=== PATIENT | female | born 1955 | race Caucasian/White ===

== ENCOUNTER → 2017-07-07 | Outpatient (CLI) | payer OTHER ==
[2017-07-07 13:20] LABS: Basophils # (A) 0.1 k/uL (0-0.2); Basophils % (A) 1 %; CHCM 31.2; Eosinophils # (A) 0.4 k/uL (0-0.7); Eosinophils % (A) 4 %; HCT 48.3 % (34.0-46.0); HGB 14.7 gm/dL (11.4-16.0); Hypochromasia Slight; Luc % (Auto) 2; Lymphocytes # (A) 1.6 k/uL (1.0-4.8); Lymphocytes % (A) 16 %; MCH 28.4 pg (25.0-35.0); MCHC 30.4 g/dL (31.0-37.0); MCV 93.2 fL (80.0-100.0); Mean Platelet Volume 7.7; Monocytes # (A) 0.5 k/uL (0-1.0); Monocytes % (A) 5 %; Neutrophils % (A) 72 %; RBC 5.19 m/uL (3.80-5.40); RDW 14.6 % (11.5-15.5); WBC 9.8 k/uL (3.8-10.6); WBC (Perox) 9.76
[2017-07-07 13:30] LABS: ALT 38 U/L (9-52); AST 23 U/L (14-36); Alkaline Phosphatase 73 U/L (38-126); Anion Gap 12 mmol/L; Blood Urea Nitrogen 13 mg/dL (7-17); Calcium 9.9 mg/dL (8.4-10.2); Carbon Dioxide 29 mmol/L (22-30); Chloride 101 mmol/L (98-107); Glucose 90 mg/dL (74-99); Non-African American GFR(MDRD) >60 (>60 ml/min/1.73 sqM); Potassium 4.9 mmol/L (3.5-5.1); Sodium 142 mmol/L (137-145); Total Bilirubin 1.1 mg/dL (0.2-1.3)
== END | disposition home or self-care (01) ==
LOC: LABWHC1 12:22
PROVIDERS: ATTEND Ophthalmology Ophthalmic Plastic and Reconstructive Surgery
DX: E05.00 Thyrotoxicosis with diffuse goiter without thyrotoxic crisis or storm (principal)
CPT/HCPCS: 36415; 80048; 82247; 84075; 84445; 84450; 84460; 84481; 85025; 86376

== ENCOUNTER → 2017-07-13 | Outpatient (CLI) | payer OTHER ==
--- NOTE | 2017-07-13 16:20 | CT ---
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 Blurry vision x couple months. CT DLP: 313.00 mGycm Automated exposure control for dose reduction was used. FINDINGS: There is uniform thickening of the inferior rectus and medial rectus muscles as well as mild thickeni ng of the superior rectus muscles and lateral rectus muscles without sparing of the myotendinous junc tions. Superior oblique musculature appears unremarkable. Chronic septation is seen within the right maxillary sinus without mucoperiosteal thickening. Inciden marlene note is made of hyperostosis frontalis and talus along the frontal calvarium. Atherosclerosis is seen of the intracranial vasculature. Exam is not optimized for evaluation of the intracranial struct ures. Superior ophthalmic veins appear unremarkable. There is no evidence of fracture or dislocation. Ocular lenses are in place and globes are symmetric. Incidental note is made of bilateral trent bullosa. IMPRESSION: FINDINGS OF BILATERAL THYROID OPHTHALMOPATHY.
== END | disposition home or self-care (01) ==
LOC: RADCTMAIN 15:45
PROVIDERS: ATTEND Ophthalmology Ophthalmic Plastic and Reconstructive Surgery
DX: E05.00 Thyrotoxicosis with diffuse goiter without thyrotoxic crisis or storm (principal)
CPT/HCPCS: 70480

== ENCOUNTER → 2017-07-13 | Outpatient (CLI) | payer OTHER ==
[2017-07-13 14:42] VITALS: BP 158/99; PULSE 134; RESP 18; TEMP 97.6
== END | disposition home or self-care (01) ==
LOC: PROCWHC3 13:47
PROVIDERS: ATTEND Ophthalmology Ophthalmic Plastic and Reconstructive Surgery
DX: Z53.9 Procedure and treatment not carried out, unspecified reason (principal); E05.00 Thyrotoxicosis with diffuse goiter without thyrotoxic crisis or storm

== ENCOUNTER → 2017-07-17 | Outpatient (CLI) | payer OTHER ==
[2017-07-17 17:15] LABS: Basophils # (A) 0.1 k/uL (0-0.2); Basophils % (A) 1 %; CHCM 31.2; Eosinophils # (A) 0.4 k/uL (0-0.7); Eosinophils % (A) 3 %; HCT 52.3 % (34.0-46.0); HDW 2.58; HGB 15.7 gm/dL (11.4-16.0); Hypochromasia Slight; Luc # (Auto) 0.17; Luc % (Auto) 2; Lymphocytes # (A) 1.6 k/uL (1.0-4.8); Lymphocytes % (A) 15 %; MCH 27.9 pg (25.0-35.0); MCV 93.2 fL (80.0-100.0); Monocytes # (A) 0.5 k/uL (0-1.0); Monocytes % (A) 4 %; Neutrophils # (A) 8.1 k/uL (1.3-7.7); Neutrophils % (A) 75 %; RBC 5.61 m/uL (3.80-5.40); RDW 14.4 % (11.5-15.5); WBC 10.8 k/uL (3.8-10.6); WBC (Perox) 10.39
[2017-07-17 17:26] LABS: ALT 47 U/L (9-52); AST 25 U/L (14-36); Alkaline Phosphatase 71 U/L (38-126); Anion Gap 10 mmol/L; Blood Urea Nitrogen 12 mg/dL (7-17); Calcium 9.7 mg/dL (8.4-10.2); Carbon Dioxide 31 mmol/L (22-30); Chloride 100 mmol/L (98-107); Glucose 111 mg/dL (74-99); Magnesium 1.6 mg/dL (1.6-2.3); Non-African American GFR(MDRD) >60 (>60 ml/min/1.73 sqM); Potassium 4.9 mmol/L (3.5-5.1); Sodium 141 mmol/L (137-145); Total Protein 6.8 g/dL (6.3-8.2)
[2017-07-17 17:48] LABS: Creatine Kinase MB 1.5 ng/mL (0.0-2.4); Troponin I <0.012 ng/mL (0.000-0.034)
== END | disposition home or self-care (01) ==
LOC: LABWHC1 17:00
PROVIDERS: ATTEND Nurse Practitioner Adult Health
DX: R06.00 Dyspnea, unspecified (principal); I48.91 Unspecified atrial fibrillation; I49.3 Ventricular premature depolarization
CPT/HCPCS: 36415; 80053; 82553; 83735; 84484; 85025; 85379

== ENCOUNTER → 2017-10-03 | Outpatient (CLI) | payer OTHER ==
--- NOTE | 2017-10-03 21:17 | US ---
EXAMINATION TYPE: US thyroid st tissue head/neck DATE OF EXAM: 10/03/2017 COMPARISON: NONE CLINICAL HISTORY: E05.90 Thyrotoxicosis without crisis or storm. Pt states Dr thinks she may have Gra ve's disease/ Pt states she had radioactive iodine for hyperthyroid 5 years ago GLAND SIZE: Right Lobe: 2.5 x 0.6 x 0.7 cm Overall Parenchyma: heterogenous Left Lobe: 3.0 x 1.2 x 1.0 cm Overall Parenchyma: heterogeneous Isthmus Thickness: 0.2 cm NODULES LEFT: # of nodules measured on left: 1 1. 1.0 X 1.0 x 1.0 cm isoechoic solid nodule at the mid pole with well-defined margins; This nodul e is equal wide and tall and shows no intranodular vascularity. Prior size: No prior Bilateral neck scanned, no evidence of lymphadenopathy. Small, heterogeneous thyroid with single nodu le on left Remnant thyroid is small in size and heterogeneous in appearance with 1.0 cm round isoechoic solid no dule left thyroid lobe noted midpole level. IMPRESSION: Small heterogeneous thyroid with 1.0 cm isoechoic round solid nodule left thyroid lobe noted.
== END | disposition home or self-care (01) ==
LOC: RADUSWWP 15:26
PROVIDERS: ATTEND Family Medicine
DX: E04.1 Nontoxic single thyroid nodule (principal)
CPT/HCPCS: 76536

== ENCOUNTER 2017-11-27 12:22 | Day surgery (SDC) | payer OTHER ==
[2017-11-27 13:21] VITALS: TEMP 97.7
[2017-11-27] MEDS ORDERED: ALPRAZolam 0.5 MG TAB PO STA (13:54)
[2017-11-27 15:13] VITALS: BP 180/102; PULSE 78; RESP 16
--- NOTE | 2017-11-27 15:24 | US ---
EXAMINATION TYPE: US FNA thyroid DATE OF EXAM: 11/27/2017 COMPARISON: Ultrasound 10/03/2017 HISTORY: Thyroid nodule, E04.1 Maximal barrier technique was utilized. Ultrasound using sterile technique. The skin overlying the no dule was localized with ultrasound and the overlying skin prepped and draped. Lidocaine used for loca l anesthesia. 5 passes with a 25-gauge needle were made into the nodule under ultrasound guidance. As pirated specimen submitted to cytology. Following the procedure hemostasis achieved. No immediate com plication IMPRESSION: Status post ultrasound-guided fine-needle aspiration of left thyroid nodule, pathology pe nding.
== END 2017-11-27 15:15 | disposition home or self-care (01) ==
LOC: RADPROMAIN 12:22
PROVIDERS: ATTEND Otolaryngology
DX: E04.1 Nontoxic single thyroid nodule (principal); E03.9 Hypothyroidism, unspecified; E05.00 Thyrotoxicosis with diffuse goiter without thyrotoxic crisis or storm; Z92.3 Personal history of irradiation
CPT/HCPCS: 10022; 76942; 88173; 88305

== ENCOUNTER 2018-04-28 14:05 | Emergency (ER) | payer OTHER ==
[2018-04-28 14:11] VITALS: RESP 18; TEMP 98
[2018-04-28] MEDS ORDERED: LIDOCAINE URO-JET JELLY 2% 5 ML KIT URETHRAL ONE (14:26)
[2018-04-28] MEDS ORDERED: SODIUM CHLORIDE 0.9% 1,000 ML IV STA (14:40)
[2018-04-28] MEDS ORDERED: SODIUM CHLORIDE 0.9% 1,000 ML IV ONE (14:41)
[2018-04-28] MEDS ORDERED: OXYMETAZOLINE 0.05% NASL SPRAY 1 SPRAY BOTTLE NASAL STA (14:47)
[2018-04-28 14:55] VITALS: PULSE 50
[2018-04-28 15:08] LABS: Basophils # (A) 0.1 k/uL (0-0.2); Basophils % (A) 0 %; Eosinophils # (A) 0.5 k/uL (0-0.7); Eosinophils % (A) 3 %; HCT 33.4 % (34.0-46.0); HGB 10.9 gm/dL (11.4-16.0); Lymphocytes # (A) 2.3 k/uL (1.0-4.8); Lymphocytes % (A) 11 %; MCHC 32.8 g/dL (31.0-37.0); MCV 88.4 fL (80.0-100.0); Mean Platelet Volume 7.2; Monocytes # (A) 1.3 k/uL (0-1.0); Monocytes % (A) 7 %; Neutrophils # (A) 15.8 k/uL (1.3-7.7); Neutrophils % (A) 78 %; Platelet Count 298 k/uL (150-450); RBC 3.77 m/uL (3.80-5.40); RDW 14.1 % (11.5-15.5); WBC 20.2 k/uL (3.8-10.6)
[2018-04-28 15:15] LABS: ALT 59 U/L (9-52); AST 28 U/L (14-36); Albumin 3.2 g/dL (3.5-5.0); Alkaline Phosphatase 53 U/L (38-126); Anion Gap 12 mmol/L; Blood Urea Nitrogen 20 mg/dL (7-17); Calcium 8.7 mg/dL (8.4-10.2); Carbon Dioxide 24 mmol/L (22-30); Chloride 102 mmol/L (98-107); Glucose 212 mg/dL (74-99); INR 1.1 (<1.2); Magnesium 1.5 mg/dL (1.6-2.3); Potassium 4.1 mmol/L (3.5-5.1); Prothrombin Time 10.5 sec (9.0-12.0); Sodium 138 mmol/L (137-145); Total Bilirubin 0.5 mg/dL (0.2-1.3); Total Protein 5.3 g/dL (6.3-8.2)
[2018-04-28 15:18] LABS: Partial Thromboplastin Time 19.3 sec (22.0-30.0)
[2018-04-28] MEDS ORDERED: cefTRIAXone 2,000 MG in SODIUM CHLORIDE 0.9% 100 ML IVPB STA (15:24)
[2018-04-28] MEDS ORDERED: cefTRIAXone IN SWFI 2,000 MG/20 ML SYRINGE IVP STA (15:25)
[2018-04-28 15:28] LABS: Creatine Kinase <20 U/L (30-135)
[2018-04-28 15:41] LABS: Creatine Kinase MB 0.4 ng/mL (0.0-2.4); Troponin I <0.012 ng/mL (0.000-0.034)
--- NOTE | 2018-04-28 16:10 | XR ---
EXAMINATION TYPE: XR chest 1V portable DATE OF EXAM: 04/28/2018 COMPARISON: NONE HISTORY: Chest pain TECHNIQUE: Single frontal view of the chest is obtained. FINDINGS: Exam limited by technique. Particular limitation lung bases. Subsegmental left perihilar c hanges are noted. Atherosclerotic change aorta. Hyperinflation suggests COPD. No pneumothorax. Arthro yolanda of the shoulders. IMPRESSION: Left perihilar subsegmental atelectasis or infiltrate correlate clinically.
[2018-04-28] MEDS ORDERED: ONDANSETRON 4 MG/2 ML VIAL IVP STA (17:41)
--- NOTE | 2018-04-28 17:47 | ED ---
ENT HPI - General Chief complaint: ENT Stated complaint: nosebleed Time Seen by Provider: 04/28/18 14:10 Source: patient, EMS Mode of arrival: EMS Limitations: no limitations - History of Present Illness Initial comments: 62 years old lady had an orbital decompression done 2 days ago at [facility] by Dr. Peck initially the nose was bleeding then the left side it stopped bleeding she also has some blood clots in her throat. Denies any headaches no neck stiffness no chest pain or shortness of breath no abdominal pain no frequency urgency dysuria or signs of any TIA or CVA - Related Data Home Medications Medication Instructions Recorded Confirmed Atorvastatin [Lipitor] 20 mg PO HS 07/13/17 04/28/18 Krill Oil 500 mg PO DAILY 07/13/17 04/28/18 Lisinopril [Zestril] 10 mg PO DAILY 07/13/17 04/28/18 Ranitidine HCl [Zantac] 150 mg PO BID 07/13/17 04/28/18 Apixaban [Eliquis] 2.5 mg PO BID 08/07/17 04/28/18 Metoprolol Tartrate [Lopressor] 100 mg PO BID 08/14/17 04/28/18 Diltiazem HCl [Cardizem] 120 mg PO DAILY 11/16/17 04/28/18 sitaGLIPtin [Januvia] 100 mg PO DAILY 11/16/17 04/28/18 Acetaminophen/Diphenhydramine 1 tab PO HS PRN 04/28/18 04/28/18 [Tylenol PM 500-25mg] Amoxic-Pot Clav 875-125Mg 1 tab PO Q12HR 04/28/18 04/28/18 [Augmentin 875-125] Aspirin 81 mg PO DAILY 04/28/18 04/28/18 Budesonide/Formoterol Fumarate 2 puff INHALATION RT-BID 04/28/18 04/28/18 [Symbicort 160-4.5 Mcg Inhaler] Calcium Carbonate 1250mg Chew 1,250 mg PO DAILY 04/28/18 04/28/18 Cholecalciferol (Vitamin D3) 2,000 unit PO DAILY 04/28/18 04/28/18 [Vitamin D3] HYDROcodone/APAP 5-325MG [[place]ford 1 tab PO Q4HR PRN 04/28/18 04/28/18 5-325] Levalbuterol Tartrate [Xopenex Hfa 1 - 2 puff INHALATION RT-Q8H PRN 04/28/1808/07 Inhaler] Levothyroxine Sodium [Synthroid] 150 mcg PO DAILY 04/28/18 04/28/18 Multivitamins, Thera [Multivitamin 1 tab PO DAILY 04/28/18 04/28/18 (formulary)] Timolol 0.5% Ophth Soln [Timoptic 1 drop BOTH EYES BID 04/28/18 04/28/18 0.5% Ophth Soln] metFORMIN HCL [Glucophage] 1,000 mg PO AC-BID 04/28/18 04/28/18 predniSONE See Taper PO DAILY 04/28/18 04/28/18 Allergies Allergy/AdvReac Type Severity Reaction Status Date / Time No Known Allergies Allergy Verified 04/28/18 14:24 Review of Systems ROS Statement: Those systems with pertinent positive or pertinent negative responses have been documented in the HPI. ROS Other: All systems not noted in ROS Statement are negative. Past Medical History Past Medical History: Atrial Fibrillation, Asthma, Diabetes Mellitus, Eye Disorder, Hyperlipidemia, Hypertension, Thyroid Disorder Additional Past Medical History / Comment(s): OVERACTIVE HYPERTHROID/TX WITH IODINE RADIATION -Graves disease History of Any Multi-Drug Resistant Organisms: None Reported Past Surgical History: Adenoidectomy, Bladder Surgery, Heart Catheterization, Tonsillectomy Additional Past Surgical History / Comment(s): BLADDER SUSPENSION, cardiac cath 08/2017, orbital surgery right side Past Anesthesia/Blood Transfusion Reactions: Postoperative Nausea & Vomiting ( PONV) Past Psychological History: No Psychological Hx Reported Smoking Status: Former smoker Past Alcohol Use History: Occasional Past Drug Use History: None Reported - Past Family History Father Family Medical History: Dementia Mother Family Medical History: Cancer Additional Family Medical History / Comment(s): BRAIN TUMOR General Exam - General Exam Comments Initial Comments: General: The patient is awake and alert, in no distress, and does not appear acutely ill. Skin: Skin is warm and dry and no rashes or lesions are noted. Eye: Pupils are equal, round and reactive to light, extra-ocular movements are intact; there is normal conjunctiva bilaterally. Ears, nose, mouth and throat: Noticed any right side was bleeding than the left side of thetop bleeding and she had a blood in the oropharynx Neck: The neck is supple, there is no tenderness or JVD. Cardiovascular: There is a regular rate and rhythm. No murmur, rub or gallop is appreciated. Respiratory: To auscultation bilateral, no wheezing no rhonchi no distress respiratory desai noticed Gastrointestinal: Soft, non-distended, non-tender abdomen without masses or organomegaly noted. There is no rebound or guarding present. Bowel sounds are unremarkable. Back: There is no tenderness to palpation in the midline. There is no obvious deformity. Musculoskeletal: Normal ROM, no tenderness, There is no pedal edema. There is no calf tenderness or swelling. No cords were appreciated. Neurological: CN II-XII intact, Cranial nerves III through XII are intact. There are no obvious motor or sensory deficits. Coordination appears grossly intact. Speech is normal. Psychiatric: Cooperative, appropriate mood & affect, normal judgment. Limitations: no limitations Course Vital Signs 04/28/18 04/28/18 04/28/18 14:07 14:54 15:19 Temperature 98 F Pulse Rate 51 L 50 L 50 L Respiratory 18 18 Rate Blood Pressure 156/69 132/65 O2 Sat by Pulse 95 95 95 Oximetry 04/28/18 16:33 Temperature Pulse Rate 50 L Respiratory 18 Rate Blood Pressure 156/57 O2 Sat by Pulse 94 L Oximetry Her hemoglobin is 10.9 white count is 20.2 she was given Rocephin 2 g since packing did not work she would need to go to the or, call Dr. Eugene burroughs at [facility] he advised that we transfer to [facility] Her stay in his right nostril packed with Merocel then the left side was packed with Merocel but are later that didn't control the epistaxis patient could not transfer her doctor on heike at [facility] for next Medical Decision Making - Lab Data Result diagrams: 04/28/18 14:47 04/28/18 14:47 Lab Results 04/28/18 04/28/18 04/28/18 Range/Units 14:47 14:47 14:47 WBC 20.2 H (3.8-10.6) k/uL RBC 3.77 L (3.80-5.40) m/uL Hgb 10.9 L (11.4-16.0) gm/dL Hct 33.4 L (34.0-46.0) % MCV 88.4 (80.0-100.0) fL MCH 29.0 (25.0-35.0) pg MCHC 32.8 (31.0-37.0) g/dL RDW 14.1 (11.5-15.5) % Plt Count 298 (150-450) k/uL Neutrophils % 78 % Lymphocytes % 11 % Monocytes % 7 % Eosinophils % 3 % Basophils % 0 % Neutrophils # 15.8 H (1.3-7.7) k/uL Lymphocytes # 2.3 (1.0-4.8) k/uL Monocytes # 1.3 H (0-1.0) k/uL Eosinophils # 0.5 (0-0.7) k/uL Basophils # 0.1 (0-0.2) k/uL PT (9.0-12.0) sec INR (<1.2) APTT (22.0-30.0) sec Sodium 138 (137-145) mmol/L Potassium 4.1 (3.5-5.1) mmol/L Chloride 102 (98-107) mmol/L Carbon Dioxide 24 (22-30) mmol/L Anion Gap 12 mmol/L BUN 20 H (7-17) mg/dL Creatinine 0.74 (0.52-1.04) mg/dL Est GFR (CKD-EPI)AfAm >90 (>60 ml/min/1.73 sqM) Est GFR (CKD-EPI)NonAf 87 (>60 ml/min/1.73 sqM) Glucose 212 H (74-99) mg/dL Calcium 8.7 (8.4-10.2) mg/dL Magnesium 1.5 L (1.6-2.3) mg/dL Total Bilirubin 0.5 (0.2-1.3) mg/dL AST 28 (14-36) U/L ALT 59 H (9-52) U/L Alkaline Phosphatase 53 (38-126) U/L Total Creatine Kinase <20 L (30-135) U/L CK-MB (CK-2) 0.4 (0.0-2.4) ng/mL CK-MB (CK-2) Rel Index Troponin I <0.012 (0.000-0.034) ng/mL Total Protein 5.3 L (6.3-8.2) g/dL Albumin 3.2 L (3.5-5.0) g/dL Blood Type Blood Type Recheck Antibody Screen Spec Expiration Date 04/28/18 04/28/18 Range/Units 14:47 14:47 WBC (3.8-10.6) k/uL RBC (3.80-5.40) m/uL Hgb (11.4-16.0) gm/dL Hct (34.0-46.0) % MCV (80.0-100.0) fL MCH (25.0-35.0) pg MCHC (31.0-37.0) g/dL RDW (11.5-15.5) % Plt Count (150-450) k/uL Neutrophils % % Lymphocytes % % Monocytes % % Eosinophils % % Basophils % % Neutrophils # (1.3-7.7) k/uL Lymphocytes # (1.0-4.8) k/uL Monocytes # (0-1.0) k/uL Eosinophils # (0-0.7) k/uL Basophils # (0-0.2) k/uL PT 10.5 (9.0-12.0) sec INR 1.1 (<1.2) APTT 19.3 L (22.0-30.0) sec Sodium (137-145) mmol/L Potassium (3.5-5.1) mmol/L Chloride (98-107) mmol/L Carbon Dioxide (22-30) mmol/L Anion Gap mmol/L BUN (7-17) mg/dL Creatinine (0.52-1.04) mg/dL Est GFR (CKD-EPI)AfAm (>60 ml/min/1.73 sqM) Est GFR (CKD-EPI)NonAf (>60 ml/min/1.73 sqM) Glucose (74-99) mg/dL Calcium (8.4-10.2) mg/dL Magnesium (1.6-2.3) mg/dL Total Bilirubin (0.2-1.3) mg/dL AST (14-36) U/L ALT (9-52) U/L Alkaline Phosphatase (38-126) U/L Total Creatine Kinase (30-135) U/L CK-MB (CK-2) (0.0-2.4) ng/mL CK-MB (CK-2) Rel Index Troponin I (0.000-0.034) ng/mL Total Protein (6.3-8.2) g/dL Albumin (3.5-5.0) g/dL Blood Type O Negative Blood Type Recheck No Antibody Screen NEGATIVE Spec Expiration Date 05/01/2018 - 2347 Disposition Clinical Impression: Epistaxis Disposition: OTHER INSTITUTION NOT DEFINED Condition: Fair Referrals: Chet Apodaca MD [Primary Care Provider] - 1-2 days - Out of Hospital Transfer - Req. Specs Out of Hospital Transfer - Requested Specifics: Other Emergency Center ( [facility] accepting physician Dr. Qureshi)
[2018-04-28 18:35] VITALS: BP 146/62
--- NOTE | 2018-05-01 02:10 | CDI ---
Documentation Clarification OP Dear Saskia Steve Please do addendum to ED report for missing procedure done related to lidocaine HCL administration. Thank you, Ghazal Neal Internet Ecommerce Specialist If you have any questions, please contact Station Engineer Main Line at [phone] [facility]
== END 2018-04-28 18:25 | disposition other institution (70) ==
LOC: EC 14:05
DX: R04.0 Epistaxis (principal); E05.00 Thyrotoxicosis with diffuse goiter without thyrotoxic crisis or storm; I48.91 Unspecified atrial fibrillation; J45.909 Unspecified asthma, uncomplicated; E11.9 Type 2 diabetes mellitus without complications; E78.5 Hyperlipidemia, unspecified; E07.9 Disorder of thyroid, unspecified; I10 Essential (primary) hypertension; Z87.891 Personal history of nicotine dependence; Z95.818 Presence of other cardiac implants and grafts; Z79.01 Long term (current) use of anticoagulants; Z79.84 Long term (current) use of oral hypoglycemic drugs; Z79.82 Long term (current) use of aspirin; Z79.51 Long term (current) use of inhaled steroids; Z79.52 Long term (current) use of systemic steroids; Z79.899 Other long term (current) drug therapy; Z98.890 Other specified postprocedural states
CPT/HCPCS: 99285; 30901; 96374; 96375; 96361; 36415; 93005; 86900; 86901; 80053; 82550; 82553; 83735; 84484; 85025; 85610; 85730; 86850; 71045; J2405; J0696

== ENCOUNTER → 2018-07-30 | Outpatient (CLI) | payer OTHER ==
--- NOTE | 2018-07-30 12:57 | US ---
EXAMINATION TYPE: US thyroid st tissue head/neck DATE OF EXAM: 07/30/2018 COMPARISON: 10/03/2017 CLINICAL HISTORY: E04.1 Nontoxic single thyroid nodule. Hx of left thyroid nodule. On thyroid meds. Hx of FNA- neg per patient. GLAND SIZE: Right Lobe: 1.9 x 0.4 x 0.8 cm Overall Parenchyma: heterogenous Left Lobe: 1.5 x 1.2 x 0.8 cm Overall Parenchyma: heterogeneous Isthmus Thickness: 0.2 cm NODULES RIGHT: # of nodules measured on right: 0 LEFT: # of nodules measured on left: 1 1. 1.0 X 0.9 x 0.7 cm isoechoic nodule at the mid pole with well-defined margins. This nodule is t aller than wide and shows intranodular vascularity. Prior size: 1.0 x 1.0 x 1.0 cm ISTHMUS: # of nodules measured in the isthmus: 0 Bilateral neck scanned, no evidence of lymphadenopathy. IMPRESSION: Stable thyroid nodularity appearance.
== END | disposition home or self-care (01) ==
LOC: RADUSWWP 12:15
PROVIDERS: ATTEND Otolaryngology
DX: E04.1 Nontoxic single thyroid nodule (principal)
CPT/HCPCS: 76536

== ENCOUNTER → 2018-08-22 | Outpatient (CLI) | payer OTHER ==
--- NOTE | 2018-08-22 15:32 | CT ---
EXAMINATION TYPE: CT sinus wo con DATE OF EXAM: 08/22/2018 COMPARISON: 07/13/2017 facial bone study. HISTORY: Dizziness after orbital decompression CT DLP: 304.00 mGycm CONTRAST: 0 mL of Isovue 300 The paranasal sinuses are examined in the axial plane at 2 mm thick sections. Reconstructed images i n the coronal plane were obtained. There is dental amalgam scatter artifact There is interval development of mucosal thickening throughout multiple postsurgical sinuses. There i s mucosal thickening nearly filling the right maxillary sinus. Mucosal thickening within left maxilla ry sinus. Bilateral uncinectomies been performed. Ethmoidectomies been performed. There is mucosal t hickening within residual ethmoid air cells. Mucosal thickening within the right and posterior left s phenoid sinuses. Frontal sinuses. Minimal mucosal thickening. The septum is evaluated. There is septal spur to the right. A left trent bullosa is present. Hyperostosis frontalis internus is present, normal variant. IMPRESSIONS: 1. Scattered mucosal thickening and postsurgical sinus study.
== END | disposition home or self-care (01) ==
LOC: RADCTMAIN 14:51
PROVIDERS: ATTEND Otolaryngology
DX: J34.89 Other specified disorders of nose and nasal sinuses (principal); J32.9 Chronic sinusitis, unspecified; Z98.890 Other specified postprocedural states
CPT/HCPCS: 70486

== ENCOUNTER → 2018-09-05 | Outpatient (CLI) | payer OTHER ==
--- NOTE | 2018-09-06 05:44 | MR ---
EXAMINATION TYPE: MR brain and iac wo/w con DATE OF EXAM: 09/05/2018 COMPARISON: CT sinuses August 22, 2018 HISTORY: Tinnitus / Dizziness as well as chronic sinusitis and acoustic nerve nerve disorder all per order and patient. TECHNIQUE: Multiplanar, multisequence images of the brain and brainstem is performed without and with IV contras t, utilizing 7.5 mL intravenous Gadavist . FINDINGS: Diffusion weighted images demonstrate no evidence of a recent infarct or other diffusion ab normality. There is no worrisome extra-axial fluid collection. The ventricular system and cisternal spaces are normal in size and appearance. The brain volume is age appropriate. There are scattered focal and confluent areas of T2 hyperintensity seen throughout the superficial, deep, and the periven tricular white matter. For reference a lesion measuring 10 mm long axis axial image 19 posterior righ t frontal lobe at level of pino radiata is noted. Midline structures demonstrate normal morphology. The craniocervical junction appears within normal limits. Post contrast images demonstrate no abnormal enhancement. The dural venous sinuses appear pa tent. There is redemonstration of small mucous retention cyst in the posterior inferior left maxillar y sinus. There is moderate to severe lobulated mucosal thickening filling the majority of the right m axillary sinus. Mild mucosal thickening anterior right sphenoid sinus is redemonstrated. Dependent fl uid left sphenoid sinus axial image 9 is redemonstrated. There are old fracture deformities of the me dial wall bilateral orbits near axial image 12 redemonstrated. Globes are intact bilaterally. Mastoid air cells show no suspicious opacification. The vestibulocochlear complexes are symmetric and felt within normal limits. No suspicious enhancing cerebellopontine angle mass is identified bilater ally. IMPRESSION: 1. No suspicious enhancing cerebellopontine angle mass. 2. Acute on chronic paranasal sinus disease as detailed above. 3. [id number] nonspecific white matter changes, no suspicious enhancement is seen.
== END | disposition home or self-care (01) ==
LOC: RADMRIMAIN 16:15
PROVIDERS: ATTEND Otolaryngology
DX: R90.89 Other abnormal findings on diagnostic imaging of central nervous system (principal); H93.3X9 Disorders of unspecified acoustic nerve; H93.19 Tinnitus, unspecified ear
CPT/HCPCS: 82565; 70553; 36415; A9585

== ENCOUNTER 2018-10-18 07:40 | Day surgery (SDC) | payer OTHER ==
[2018-10-15 14:55] VITALS: BMI 29.2
[~2018-10-18 07:40] MED LIST: DEXAMETHASONE SOD PHOSPHATE 10 MG/ML 1 ML VIAL IV ONE; DEXAMETHASONE SOD PHOSPHATE 4 MG/ML 1 ML VIAL IV ONE; FAMOTIDINE 20 MG/2 ML VIAL IV ONE; HYDROmorphone 1 MG/ML 1 ML SYRINGE IVP PRN; LACTATED RINGERS 1,000 ML IV SCH; LIDOCAINE 1% 20 ML VIAL (10MG/ML) FOR IV START INTRADERMA PRN; ONDANSETRON 4 MG/2 ML VIAL IVP ONE; SCOPOLAMINE 1.5MG/72HR PATCH TRANSDERM ONE; ceFAZolin 1,000 MG in DEXTROSE/WATER 1 50ML.BAG IV ONE
[2018-10-18 08:12] VITALS: RESP 16
[2018-10-18] MEDS: OXYMETAZOLINE 0.05% NASL SPRAY 1 SPRAY BOTTLE NASAL ONE ×5 (08:17→08:42)
[2018-10-18 08:19] LABS: Glucose,Whole Blood 133 mg/dL (75-99)
[2018-10-18] MEDS ORDERED: MIDAZOLAM 2 MG/2 ML VIAL IV ONE (08:37)
[2018-10-18] MEDS ORDERED: SUCCINYLCHOLINE CHLORIDE 100 MG/5 ML SYR IV ONE (09:00)
[2018-10-18] MEDS ORDERED: fentaNYL (PF) 50 MCG/ML 2 ML AMP ONE (09:00)
[2018-10-18] MEDS ORDERED: DEXAMETHASONE SOD PHOS (MDV) 100 MG/10 ML VIAL ONE (09:00)
[2018-10-18] MEDS ORDERED: ePHEDrine SULFATE/0.9% NACL/PF 50 MG/5 ML SYRINGE IV ONE (09:00)
[2018-10-18] MEDS ORDERED: MIDAZOLAM 2 MG/2 ML VIAL ONE (09:00)
[2018-10-18] MEDS ORDERED: PROPOFOL 10 MG/ML 20 ML VIAL IV ONE (09:00)
[2018-10-18] MEDS ORDERED: LIDOCAINE 1% INJ 10MG/ML (20 ML MDV) ONE (09:00)
[2018-10-18] MEDS ORDERED: LIDOCAINE 1%-EPI 1:100,000 30 ML VIAL SUBMUCOSAL ONE (09:10)
[2018-10-18] MEDS ORDERED: BUPIVACAINE-EPI 0.5%-1:200,000 10 ML VIAL SQ ONE (09:10)
[2018-10-18] MEDS ORDERED: ceFAZolin 1,000 MG/50 ML BAG (PMX) IVPB ONE (09:10)
[2018-10-18] MEDS ORDERED: EPINEPHrine 10 ML SYRINGE (0.1 MG/ML) MISCELLANE ONE (09:10)
[2018-10-18 10:16] VITALS: TEMP 97.3
--- NOTE | 2018-10-18 10:25 | P.OP ---
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 Placement of drug- eluting stent bilaterally, propel and contour Anesthesia: MARK Surgeon: Elgin Gallardo Estimated Blood Loss (ml): 5 Pathology: none sent (sinonasal) Condition: stable Disposition: PACU Indications for Procedure: This patient presented to the office with chronic sinusitis. She had an orbital decompression for Graves' disease and CAT scan demonstrates chronic maxillary and sphenoid sinusitis with polyposis. She's failed medical therapy with multiple antibiotics reviewed her problems and then persistent for well over a year. She has diabetes and unable to do for steroids. She recently completed Levaquin and Flonase and Brionna with no long-term improvement. Patient is requesting surgery. All risks, benefits, and alternative therapies were discussed. All questions were answered and a consent was obtained. Operative Findings: Patient had massive sinonasal disease of the maxillary and sphenoid sinuses with large amount of polyposis noted. Description of Procedure: This patient was taken to the operative room and placed in the supine position. A general inhalation anesthetic was administered to the patient by the department of anesthesia and monitored throughout the entire case by the department of anesthesia. The nose was topically decongested and then the lateral nasal wall was injected with lidocaine 1% with epinephrine 1 100,000. A sphenopalatine nerve block was also performed. After appropriate amount of time the nose was entered with a 0 and 30 Mcclain emani telescope and we utilized endoscopic visualization throughout the entire procedure with confirmation of anatomic guidance. Firstly we went underneath the inferior turbinates and did a bilateral maxillary antrostomy underneath the inferior turbinate. A large amount of polyp material was removed from the maxillary sinus through the nasal antral windows. We then went above the inferior turbinate and with a microdebrider opening up the maxillary sinuses and removed diseased tissue bilaterally. After the maxillary sinuses were open both above and below the inferior turbinate propel and contour was placed. This was done bilaterally. Again a large amount of polyp disease was removed from both maxillary sinuses. We then identified the sphenoid sinus and open the sphenoid sinuses with a microdebrider. We entered the sphenoid sinus and we remove diseased tissue from the sphenoid sinus bilaterally. To summarize the maxillary sinuses were open above and below the inferior turbinate and diseased tissue and polyps were removed. We then opened the maxillary sinuses and did the same with a wide opening and removal of diseased tissue and polyps. Again propel and contour was placed bilaterally and the patient tolerated this well. Follow-up will be in the office in 1 week and the patient is to contact me if any problems should arise in the interim.
[2018-10-18 10:49] LABS: Glucose,Whole Blood 157 mg/dL (75-99)
[2018-10-18 11:48] VITALS: BP 144/82; PULSE 66
== END 2018-10-18 12:23 | disposition home or self-care (01) ==
LOC: OR 07:40
PROVIDERS: ATTEND Otolaryngology
DX: J32.0 Chronic maxillary sinusitis (principal); J32.3 Chronic sphenoidal sinusitis; J33.8 Other polyp of sinus; J45.909 Unspecified asthma, uncomplicated; I10 Essential (primary) hypertension; E11.9 Type 2 diabetes mellitus without complications; I48.0 Paroxysmal atrial fibrillation; I42.9 Cardiomyopathy, unspecified; E78.2 Mixed hyperlipidemia; E05.00 Thyrotoxicosis with diffuse goiter without thyrotoxic crisis or storm; K21.9 Gastro-esophageal reflux disease without esophagitis; Z79.01 Long term (current) use of anticoagulants; Z79.82 Long term (current) use of aspirin; Z79.84 Long term (current) use of oral hypoglycemic drugs; Z79.890 Hormone replacement therapy; Z79.899 Other long term (current) drug therapy; Z79.51 Long term (current) use of inhaled steroids; Z87.891 Personal history of nicotine dependence
CPT/HCPCS: 88305; 31267; 31288; C2625 ×2; J2250; J1100 ×2; J2405; J2001; J0171; J3010; J0690; J0330; J2704

== ENCOUNTER → 2019-04-18 | Outpatient (CLI) | payer OTHER ==
[2019-04-18 16:02] LABS: Anisocytosis Slight; Basophils # (A) 0.1 k/uL (0-0.2); Basophils % (A) 1 %; Eosinophils # (A) 0.3 k/uL (0-0.7); Eosinophils % (A) 3 %; HCT 31.3 % (34.0-46.0); HGB 8.2 gm/dL (11.4-16.0); Hypochromasia Marked; Lymphocytes # (A) 1.4 k/uL (1.0-4.8); Lymphocytes % (A) 12 %; MCH 17.7 pg (25.0-35.0); MCHC 26.1 g/dL (31.0-37.0); MCV 67.6 fL (80.0-100.0); Mean Platelet Volume 8.2; Microcytosis Marked; Monocytes # (A) 0.7 k/uL (0-1.0); Monocytes % (A) 6 %; Neutrophils # (A) 8.6 k/uL (1.3-7.7); Neutrophils % (A) 77 %; Platelet Count 326 k/uL (150-450); Poikilocytosis Slight; RBC 4.63 m/uL (3.80-5.40); RDW 18.6 % (11.5-15.5); WBC 11.3 k/uL (3.8-10.6)
[2019-04-18 16:11] LABS: ALT 17 U/L (9-52); AST 19 U/L (14-36); Albumin 4.3 g/dL (3.5-5.0); Albumin/Globulin Ratio 1.7; Alkaline Phosphatase 58 U/L (38-126); Anion Gap 9 mmol/L; Blood Urea Nitrogen 16 mg/dL (7-17); Calcium 9.6 mg/dL (8.4-10.2); Carbon Dioxide 31 mmol/L (22-30); Chloride 100 mmol/L (98-107); Globulin 2.6 g/dL; Glucose 128 mg/dL (74-99); Sodium 140 mmol/L (137-145); Total Bilirubin 0.7 mg/dL (0.2-1.3); Total Protein 6.9 g/dL (6.3-8.2)
[2019-04-18 23:19] LABS: Iron Saturation 2.38 (12.00-45.00)
== END ==
LOC: LABWHC1 15:33
PROVIDERS: ATTEND Nurse Practitioner Adult Health
DX: I48.91 Unspecified atrial fibrillation (principal); D64.9 Anemia, unspecified
CPT/HCPCS: 36415; 80053; 83540; 83550; 83880; 85025

== ENCOUNTER → 2019-05-01 | Outpatient (CLI) | payer OTHER ==
--- NOTE | 2019-05-01 12:36 | US ---
EXAMINATION TYPE: US transvaginal DATE OF EXAM: 05/01/2019 COMPARISON: NONE CLINICAL HISTORY: D64.9 anemia. TECHNIQUE: Transvaginal (TV). Transabdominal sonographic images of the pelvis were acquired. Trans vaginal sonographic images were medically necessary to better assess the following anatomy: Date of LMP: Post menopausal. EXAM MEASUREMENTS: Uterus: 5.8 x 3.3 x 3.0 cm Endometrial Stripe: Not well seen cm Right Ovary: Not identified cm Left Ovary: Not identified cm 1. Uterus: Retroverted Partially Obscured by overlying bowel gas 2. Endometrium: Fluid collection noted = 0.8 x 1.3 x 0.4 cm 3. Right Ovary: Obscured by overlying bowel gas 4. Left Ovary: Obscured by overlying bowel gas Spectral, color and waveform doppler imaging shows good arterial and venous flow within the ovaries ; there is no evidence for ovarian torsion. 5. Bilateral Adnexa: wnl 6. Posterior cul-de-sac: wnl Sub optimal exam due to position of uterus, overlying bowel gas, and patient difficulty with exam. IMPRESSION: 1. Small endometrial fluid collection can be seen in endometrial atrophy. Correlate with postmenopaus al bleeding. Endometrium and uterus are overall poorly defined. 2. Nonvisualization of the ovaries.
== END | disposition home or self-care (01) ==
LOC: RADUSWWP 10:25
PROVIDERS: ATTEND Family Medicine
DX: N85.8 Other specified noninflammatory disorders of uterus (principal); D64.9 Anemia, unspecified
CPT/HCPCS: 76830

== ENCOUNTER 2019-05-06 08:28 | Day surgery (SDC) | payer OTHER ==
[2019-05-01 11:17] VITALS: BMI 30.5
[~2019-05-06 08:28] MED LIST changes: -DEXAMETHASONE SOD PHOSPHATE 10 MG/ML 1 ML VIAL IV ONE; -DEXAMETHASONE SOD PHOSPHATE 4 MG/ML 1 ML VIAL IV ONE; -FAMOTIDINE 20 MG/2 ML VIAL IV ONE; -HYDROmorphone 1 MG/ML 1 ML SYRINGE IVP PRN; -LIDOCAINE 1% 20 ML VIAL (10MG/ML) FOR IV START INTRADERMA PRN; -ONDANSETRON 4 MG/2 ML VIAL IVP ONE; -SCOPOLAMINE 1.5MG/72HR PATCH TRANSDERM ONE; -ceFAZolin 1,000 MG in DEXTROSE/WATER 1 50ML.BAG IV ONE
[2019-05-06 09:10] VITALS: TEMP 97.2
[2019-05-06] MEDS ORDERED: LIDOCAINE 1% 20 ML VIAL (10MG/ML) FOR IV START INTRADERMA ONE (09:14)
[2019-05-06] MEDS ORDERED: LIDOCAINE 1% INJ 10MG/ML (20 ML MDV) ONE (09:42)
[2019-05-06] MEDS ORDERED: PROPOFOL 10 MG/ML 20 ML VIAL IV ONE (09:42)
[2019-05-06 10:43] VITALS: BP 126/79; PULSE 100; RESP 18
--- NOTE | 2019-05-06 11:55 | P.PCN ---
Date of Procedure: 05/06/19 Procedure(s) Performed: Procedure: Esophagogastroduodenoscopy and biopsy. Total colonoscopy. Preoperative diagnosis: Anemia. Postoperative diagnosis: 1. Small sliding hiatal hernia with no obvious esophagitis or complicated reflux disease. 2. Mild antral gastritis. 3. Multiple biopsies obtained from the duodenum, antrum and esophagus. 4. Sigmoid diverticulosis with no evidence of acute diverticulitis, strictures, polyps or cancer. Preparation and sedation: Was provided by anesthesia. Brief clinical history: The patient is a 63-year-old female who is scheduled for this evaluation because of anemia. The purposes to rule out lower GI sources of bleeding. Procedure: With the patient on her left lateral decubitus position and after informed consent and adequate sedation, I passed the Olympus-GIF H190 video upper endoscope through the cricopharyngeus down the esophagus. GE junction was around 36 cm from the incisors and there was a small sliding hiatal hernia but no obvious esophagitis or complicated reflux disease. The endoscope was then advanced into the stomach which was insufflated with air and inspected in detail including the retroflex view in the cardia. There was some mottling and erythema in the antrum but no ulcers or erosions. Pyloric channel, duodenal bulb, post bulbar area and descending duodenum appeared within normal limits. Because of her symptoms, obtained biopsies from the duodenum, antrum and esophagus then the endoscope was withdrawn and I proceeded to perform the colonoscopy. Perianal area did not show any fissures or fistulas. There were no masses felt on digital rectal examination. The Olympus CFH 190L was then inserted in the rectum in the usual fashion and advanced to the cecum. Few diverticular orifices were seen scattered in the sigmoid with no evidence of acute diverticulitis or strictures. The mucosa appeared healthy. No polyps or tumors were seen. I retroflexed endoscope in the rectum before the endoscope was withdrawn. The patient tolerated the procedure well. Plan: The patient was reassured. Will await biopsy results. Further plans based on her course and biopsy results. She will follow-up with you as planned.
== END 2019-05-06 11:18 | disposition home or self-care (01) ==
LOC: ORWHC2ENDO 08:28
DX: D64.9 Anemia, unspecified (principal); K44.9 Diaphragmatic hernia without obstruction or gangrene; K29.50 Unspecified chronic gastritis without bleeding; K57.30 Diverticulosis of large intestine without perforation or abscess without bleeding; K20.9 Esophagitis, unspecified; I48.91 Unspecified atrial fibrillation; E11.9 Type 2 diabetes mellitus without complications; I10 Essential (primary) hypertension; E78.5 Hyperlipidemia, unspecified; J44.9 Chronic obstructive pulmonary disease, unspecified; Z79.82 Long term (current) use of aspirin; Z79.890 Hormone replacement therapy; Z79.899 Other long term (current) drug therapy; Z79.84 Long term (current) use of oral hypoglycemic drugs
CPT/HCPCS: 88305; 45378; 43239; J2001; J2704

== ENCOUNTER → 2019-05-24 | Outpatient (CLI) | payer OTHER ==
--- NOTE | 2019-05-24 16:23 | CT ---
EXAMINATION TYPE: CT abdomen pelvis wo con DATE OF EXAM: 05/24/2019 COMPARISON: None HISTORY: Anemia. CT DLP: 826 mGycm Examination of the solid and hollow viscera is limited given the lack of contrast. FINDINGS: LUNG BASES: No evidence for nodule. No evidence for infiltrate. Sliding-type hiatal hernia. LIVER/GB: The gallbladder is unremarkable. No space-occupying hepatic lesion. PANCREAS: No pancreatic mass identified. No inflammatory process seen. SPLEEN: No evidence for splenomegaly. No intrasplenic lesions seen. ADRENALS: No adrenal nodules identified. No evidence for thickening. KIDNEYS: No evidence for renal mass. No nephrolithiasis. No hydronephrosis. BOWEL: Appendix has a normal appearance. No evidence of bowel obstruction. No inflammatory process. R ight lower quadrant soft tissue nodule measuring 1.1 cm of uncertain etiology within the right lower quadrant mesentery with mild surrounding strandy attenuation. Lymph nodes: No evidence for adenopathy greater than 1 cm. Abdominal aorta: Atheromatous changes seen. No evidence for aneurysm. Genital organs: No significant abnormality. Other: No significant abnormality. IMPRESSION: 1. No significant abnormality to account for the patient's symptoms of hematuria. 2. Small sliding-type hiatal hernia. 3. Normal appendix.
--- NOTE | 2019-05-24 16:28 | CT ---
EXAMINATION TYPE: CT sinus wo con DATE OF EXAM: 05/24/2019 COMPARISON: 08/22/2018 HISTORY: Chronic sinusitis. CT DLP: [address] of the paranasal sinuses was performed in the axial and coronal planes. Bone and soft tissue settings are submitted. Bilateral medial maxillary antrectomy. Moderate mucosal thickening right maxillary sinus. Left maxill simeon sinus is well aerated. Changes of partial ethmoidectomy with scattered mucosal thickening of the remaining ethmoid air cells. Frontal sinuses are hypoaerated. There is mild mucosal thickening of the sphenoid sinus. The nasal septum is midline. No bony destructive changes are seen within the field of view. IMPRESSION: Changes of chronic sinusitis. Postop changes. Overall stable examination.
== END | disposition home or self-care (01) ==
LOC: RADCTMAIN 15:43
PROVIDERS: ATTEND Otolaryngology
DX: K44.9 Diaphragmatic hernia without obstruction or gangrene (principal); J32.9 Chronic sinusitis, unspecified; Z98.890 Other specified postprocedural states
CPT/HCPCS: 70486; 74176

== ENCOUNTER → 2019-05-24 | Outpatient (CLI) | payer OTHER | END | disposition home or self-care (01) | LOC: RADCTMAIN 15:41 | PROVIDERS: ATTEND Nurse Practitioner Adult Health | DX: Z53.9 Procedure and treatment not carried out, unspecified reason (principal) ==

== ENCOUNTER → 2019-08-07 | Outpatient (CLI) | payer OTHER ==
--- NOTE | 2019-08-07 16:01 | US ---
EXAMINATION TYPE: US thyroid st tissue head/neck DATE OF EXAM: 08/07/2019 COMPARISON: NONE CLINICAL HISTORY: E04.1 Thyroid Nodule. follow up exam, had radiation pill years ago GLAND SIZE: Right Lobe: 1.6 x 0.5 x 0.6 cm Overall Parenchyma: homogenous Left Lobe: 1.9 x 0.9 x 1.1 cm Overall Parenchyma: heterogeneous Isthmus Thickness: 0.2 cm NODULES RIGHT: # of nodules measured on right: 0 LEFT: # of nodules measured on left: 1 1. 1.1 X 0.7 x 0.8 cm hypoechoic solid nodule at the mid pole with well-defined margins; . This no dule is wider than tall and shows no intranodular vascularity. Prior size: 1.0 x 0.9 x 0.7 cm ISTHMUS: # of nodules measured in the isthmus: 0 Bilateral neck scanned, no evidence of lymphadenopathy. IMPRESSION: 1. 1 cm left lobe thyroid nodule. This appears similar in size from the comparison
== END | disposition home or self-care (01) ==
LOC: RADUSWWP 14:18
PROVIDERS: ATTEND Otolaryngology
DX: E04.1 Nontoxic single thyroid nodule (principal)
CPT/HCPCS: 76536

== ENCOUNTER → 2020-08-10 | Outpatient (CLI) | payer MEDICARE, OTHER ==
--- NOTE | 2020-08-10 18:09 | US ---
EXAMINATION TYPE: US thyroid st tissue head/neck DATE OF EXAM: 08/10/2020 COMPARISON: 08/07/2019 CLINICAL HISTORY: 64-year-old female E04.1 Thyroid nodule. Left thyroid nodule TECHNIQUE: Multiple sonographic images of the thyroid gland are obtained. FINDINGS: GLAND SIZE: Right Lobe: 2.5 x 1.0 x 1.0 cm Overall Parenchyma: heterogenous Left Lobe: 2.3 x 1.1 x 1.1 cm Overall Parenchyma: heterogeneous Isthmus Thickness: 0.3 cm NODULES LEFT: # of nodules measured on left: 1 1. 1.0 X 0.7 x 1.0 cm hypoechoic solid nodule at the mid pole with well-defined margins; this nodul e is wider than tall and shows no intranodular vascularity. Prior size: 1.1 x 0.7 x 0.8 cm Bilateral neck scanned, no evidence of lymphadenopathy. Stable nodule left lobe. IMPRESSION: 1. Small heterogeneous thyroid gland could reflect chronic hypothyroidism. 2. Solitary stable 1.0 cm nodule on the left as compared to 08/07/2019.
--- NOTE | 2020-08-10 18:24 | CT ---
EXAMINATION TYPE: CT sinus wo con DATE OF EXAM: 08/10/2020 COMPARISON: 05/24/2019 HISTORY: chronic sinus congestion CT DLP: 435.9 mGycm. Automated Exposure Control for Dose Reduction was Utilized. TECHNIQUE: CT scan of the sinuses is performed without contrast, axial images are obtained, coronal r eformatted images are also reviewed. FINDINGS: Bilateral medial maxillary antrectomy. Mild mucosal thickening right maxillary sinus. Left maxillary sinus is well aerated. Changes of partial ethmoidectomy with scattered mucosal thickening o f the remaining ethmoid air cells. Frontal sinuses are hypoplastic. There is mild mucosal thickening of the sphenoid sinus. The nasal septum is midline. No bony destruct georgiana changes are seen within the field of view. The globes are intact bilaterally. Mastoid air cells are clear. Hyperostosis of the calvarium. IMPRESSION: 1. Postsurgical changes. There is interval improvement in the degree of chronic right maxillary sinu sitis. No evidence of acute sinusitis.
== END | disposition home or self-care (01) ==
LOC: RADUSWWP 14:54
PROVIDERS: ATTEND Otolaryngology
DX: J32.9 Chronic sinusitis, unspecified (principal); E04.1 Nontoxic single thyroid nodule
CPT/HCPCS: 70486; 76536

== ENCOUNTER → 2021-11-15 | Outpatient (CLI) | payer MEDICARE, OTHER ==
--- NOTE | 2021-11-15 15:01 | US ---
EXAMINATION TYPE: US thyroid st tissue head/neck DATE OF EXAM: 11/15/2021 COMPARISON: US Thyroid 08/10/2020 CLINICAL HISTORY: E04.1 Thyroid nodule. Left thyroid nodule GLAND SIZE: Right Lobe: 2.0 x 0.7 x 0.7 cm Overall Parenchyma: heterogenous Left Lobe: 1.8 x 0.7 x 1.1 cm Overall Parenchyma: heterogeneous Isthmus Thickness: 0.15 cm NODULES RIGHT: # of nodules measured on right: 0 LEFT: # of nodules measured on left: 1 1. 0.9 X 0.6 x 0.8 cm, mid , solid or almost completely solid, hypoechoic nodule, which is wider th an tall, with smooth margins, without echogenic foci. Prior size: 1.1 x 0.7 x 0.8 cm ISTHMUS: # of nodules measured in the isthmus: 0 Bilateral neck scanned, no evidence of lymphadenopathy. Incidental Finding: left carotid artery appears to have significant plaque formation within the ca rotid bulb. IMPRESSION: Essentially unchanged a left-sided thyroid nodule.
== END | disposition home or self-care (01) ==
LOC: RADUSWWP 13:31
PROVIDERS: ATTEND Otolaryngology
DX: E04.1 Nontoxic single thyroid nodule (principal)
CPT/HCPCS: 76536

== ENCOUNTER 2022-06-15 16:11 | Emergency (ER) | payer MEDICARE, OTHER ==
[2022-06-15 16:27] VITALS: RESP 18; TEMP 98.5
--- NOTE | 2022-06-15 17:19 | ED ---
URI HPI - General Chief Complaint: Upper Respiratory Infection Stated Complaint: Covid+, wants infusion Time Seen by Provider: 06/15/22 16:59 Source: patient Mode of arrival: wheelchair Limitations: no limitations - History of Present Illness Initial Comments: This 66-year-old female presents with a complaint of a slight cough as well as some weakness and fatigue. Symptoms started 2 days ago. She denies any difficulty in breathing, chest pain, fevers. She denies any myalgias, nausea, or vomiting. She states that she went to a family reunion 3 days ago and then her and her both at 2 days ago. They did a home COVID-19 test which came back positive. She apparently talked her family doctor and they told her to come in to get the COVID-19 antibody infusion. She denies any other complaints or modifying factors. - Related Data Home Medications Medication Instructions Recorded Confirmed Atorvastatin [Lipitor] 20 mg PO HS 07/13/17 06/17/19 Ranitidine HCl [Zantac] 150 mg PO BID 07/13/17 06/17/19 lisinopriL [Zestril] 5 mg PO DAILY 07/13/17 06/17/19 Metoprolol Tartrate [Lopressor] 100 mg PO BID 08/14/17 06/17/19 sitaGLIPtin [Januvia] 100 mg PO AC-LUNCH 11/16/17 06/17/19 Aspirin 81 mg PO DAILY 04/28/18 06/17/19 Budesonide/Formoterol Fumarate 2 puff INHALATION RT-BID 04/28/18 06/17/19 [Symbicort 160-4.5 Mcg Inhaler] Cholecalciferol (Vitamin D3) 5,000 unit PO DAILY 04/28/18 06/17/19 [Vitamin D3] Levalbuterol Tartrate [Xopenex Hfa 1 - 2 puff INHALATION RT-Q8H PRN 04/28/18 06/17/19 Inhaler] Multivitamins, Thera [Multivitamin 0.5 tab PO BID 04/28/18 06/17/19 (formulary)] metFORMIN HCL [Glucophage] 1,000 mg PO AC-BID 04/28/18 06/17/19 Calcium Carbonate [Calcium] 1,200 mg PO DAILY 10/15/18 06/17/19 Apixaban [Eliquis] 5 mg PO BID 05/01/19 06/17/19 Ferrous Sulfate [Feosol] 65 mg PO DAILY 05/01/19 06/17/19 Krill/[place]-3/Dha/Epa/Lipids 1 each PO DAILY 05/01/19 06/17/19 [Krill Oil 350 mg Softgel] Levothyroxine Sodium 125 mcg PO DAILY 05/01/19 06/17/19 dilTIAZem HCL [Diltiazem ER] 240 mg PO DAILY 05/01/19 06/17/19 Acetaminophen/Diphenhydramine 1 tab PO HS 05/07/19 06/17/19 [Tylenol PM 500-25mg] Furosemide [Lasix] 40 mg PO DAILY 05/07/19 06/17/19 Previous Rx's Medication Instructions Recorded Nirmatrelvir/Ritonavir [Paxlovid 1 each PO BID #10 tab 06/15/22 2X150 mg-100 mg (Eua)] Allergies Allergy/AdvReac Type Severity Reaction Status Date / Time No Known Allergies Allergy Verified 06/15/22 16:28 Review of Systems ROS Statement: Those systems with pertinent positive or pertinent negative responses have been documented in the HPI. ROS Other: All systems not noted in ROS Statement are negative. Past Medical History Past Medical History: Atrial Fibrillation, Asthma, Blood Disorder, Diabetes Mellitus, Eye Disorder, Hyperlipidemia, Hypertension, Thyroid Disorder Additional Past Medical History / Comment(s): OVERACTIVE HYPERTHROID/TX WITH IODINE RADIATION -Graves disease. ANEMIA WITH BLOOD TRANSFUSIONS. History of Any Multi-Drug Resistant Organisms: None Reported Past Surgical History: Adenoidectomy, Bladder Surgery, Heart Catheterization, Tonsillectomy Additional Past Surgical History / Comment(s): BLADDER SUSPENSION, cardiac cath 08/2017, orbital surgery right side Past Anesthesia/Blood Transfusion Reactions: Postoperative Nausea & Vomiting (PONV) Past Psychological History: No Psychological Hx Reported Smoking Status: Former smoker Past Alcohol Use History: Occasional Past Drug Use History: None Reported - Past Family History Father Family Medical History: Dementia Mother Family Medical History: Cancer Additional Family Medical History / Comment(s): BRAIN TUMOR General Exam - General Exam Comments Initial Comments: GENERAL: The patient is well nourished and well hydrated. VITAL SIGNS: Heart rate, blood pressure, respiratory rate reviewed as recorded in nurse's notes. EYES: Pupils are round and reactive. Extraocular movements are intact. No conjunctival / lid redness or swelling. ENT: No external evidence of injury, swelling, or ecchymosis. Airway is patent. Throat is clear. NECK: Nontender. No swelling or evidence of injury. No subcutaneous emphysema. Trachea is midline. No thyroid mass. HEART: Regular rate and rhythm. Good peripheral pulses. LUNGS/CHEST: Breath sounds clear and equal bilaterally. No rales, rhonchi, or wheezes. No ecchymosis, subcutaneous emphysema, or tenderness. ABDOMEN: Abdomen soft without tenderness. No palpable masses or organomegaly. No peritoneal signs. No abdominal wall swelling or ecchymosis. EXTREMITIES: No extremity tenderness. Normal muscle tone and function. No thoracolumbar tenderness. NEUROLOGIC: Sensation is grossly intact. Cranial nerve exam reveals face is symmetrical, tongue is midline, speech is clear. SKIN: No abrasions or ecchymosis is noted. No induration or masses noted. PSYCHIATRIC: Alert and oriented. Appropriate behavior and judgment. Limitations: no limitations Course Vital Signs 06/15/22 16:25 Temperature 98.5 F Pulse Rate 105 H Respiratory 18 Rate Blood Pressure 140/79 O2 Sat by Pulse 95 Oximetry Medical Decision Making - Medical Decision Making The patient was seen and examined. Her oxygenation is at 95%. She appears well clinically. Her antibody infusion is ordered. She also is interested and obtaining paxlovid and this will be prescribed. It is felt as though she is stable for discharge with close follow-up. Return parameters are discussed. - Lab Data Lab Results 06/15/22 Range/Units 16:56 Coronavirus (PCR) Detected A (Not Detectd) Disposition Clinical Impression: COVID-19 Disposition: HOME SELF-CARE Condition: Good Instructions (If sedation given, give patient instructions): COVID-19 (Coronavirus Disease 2019) (ED) Additional Instructions: Please use tylenol and/or motrin as needed for pain or fever. Please use mucinex dm or similar if needed for cough and congestion. Prescriptions: Nirmatrelvir/Ritonavir [Paxlovid 2X150 mg-100 mg (Eua)] 1 each PO BID #10 tab Is patient prescribed a controlled substance at d/c from ED?: No Referrals: Chet Apodaca MD [Primary Care Provider] - 1-2 days Time of Disposition: 17:17
[2022-06-15] MEDS ORDERED: BEBTELOVIMAB (EUA) 175 MG/2 ML VIAL IV ONE (17:45)
--- NOTE | 2022-06-15 18:01 | ED ---
Medical Decision Making - Lab Data Lab Results 06/15/22 Range/Units 16:56 Coronavirus (PCR) Detected A (Not Detectd) Disposition Clinical Impression: COVID-19 Disposition: HOME SELF-CARE Condition: Good Instructions (If sedation given, give patient instructions): COVID-19 (Coronavirus Disease 2019) (ED) Additional Instructions: Please use tylenol and/or motrin as needed for pain or fever. Please use mucinex dm or similar if needed for cough and congestion. Prescriptions: Nirmatrelvir/Ritonavir [Paxlovid 2X150 mg-100 mg (Eua)] 3 each PO BID 5 Days #30 tab Is patient prescribed a controlled substance at d/c from ED?: No Referrals: Chet Apodaca MD [Primary Care Provider] - 1-2 days Time of Disposition: 17:59
[2022-06-15 19:11] VITALS: BP 106/76; PULSE 102
== END 2022-06-15 19:11 | disposition home or self-care (01) ==
LOC: EC 16:11
DX: U07.1 COVID-19 (principal); J45.909 Unspecified asthma, uncomplicated; E11.9 Type 2 diabetes mellitus without complications; E78.5 Hyperlipidemia, unspecified; I10 Essential (primary) hypertension; Z86.79 Personal history of other diseases of the circulatory system; Z87.891 Personal history of nicotine dependence; Z79.84 Long term (current) use of oral hypoglycemic drugs; Z79.01 Long term (current) use of anticoagulants; Z79.899 Other long term (current) drug therapy
CPT/HCPCS: 99284 ×2; 87635; M0222; Q0222

== ENCOUNTER 2022-09-19 16:06 | Inpatient (IN) | payer MEDICARE, OTHER ==
[2022-09-19] MEDS ORDERED: ASPIRIN 81 MG PO STA (16:34)
--- NOTE | 2022-09-19 16:39 | ED ---
General Adult HPI - General Chief complaint: Arrhythmia/Palpitations Stated complaint: Heartburn Time Seen by Provider: 09/19/22 16:28 Source: patient, RN notes reviewed Mode of arrival: ambulatory Limitations: no limitations - History of Present Illness Initial comments: Patient is a pleasant 67-year-old female presenting to the emergency department with concern with heartburn. Patient has had symptoms for the past 3 days. Discomfort is not present at this time. Discomfort is severe at times. Patient does have associated dyspnea. No nausea. No diaphoresis. No history of similar symptoms previous.. Patient was at her primary care physician's office with low heart rate and was advised to come to emergency department. reports heart rate was 42 Patient states she does have history of atrial fibrillation however had an ablation and they are considering stopping her diltiazem. - Related Data Home Medications Medication Instructions Recorded Confirmed Atorvastatin [Lipitor] 20 mg PO HS 07/13/17 06/17/19 Ranitidine HCl [Zantac] 150 mg PO BID 07/13/17 06/17/19 lisinopriL [Zestril] 5 mg PO DAILY 07/13/17 06/17/19 Metoprolol Tartrate [Lopressor] 100 mg PO BID 08/14/17 06/17/19 sitaGLIPtin [Januvia] 100 mg PO AC-LUNCH 11/16/17 06/17/19 Aspirin 81 mg PO DAILY 04/28/18 06/17/19 Budesonide/Formoterol Fumarate 2 puff INHALATION RT-BID 04/28/18 06/17/19 [Symbicort 160-4.5 Mcg Inhaler] Cholecalciferol (Vitamin D3) 5,000 unit PO DAILY 04/28/18 06/17/19 [Vitamin D3] Levalbuterol Tartrate [Xopenex Hfa 1 - 2 puff INHALATION RT-Q8H PRN 04/28/18 06/17/19 Inhaler] Multivitamins, Thera [Multivitamin 0.5 tab PO BID 04/28/18 06/17/19 (formulary)] metFORMIN HCL [Glucophage] 1,000 mg PO AC-BID 04/28/18 06/17/19 Calcium Carbonate [Calcium] 1,200 mg PO DAILY 10/15/18 06/17/19 Apixaban [Eliquis] 5 mg PO BID 05/01/19 06/17/19 Ferrous Sulfate [Feosol] 65 mg PO DAILY 05/01/19 06/17/19 Krill/[place]-3/Dha/Epa/Lipids 1 each PO DAILY 05/01/19 06/17/19 [Krill Oil 350 mg Softgel] Levothyroxine Sodium 125 mcg PO DAILY 05/01/19 06/17/19 dilTIAZem HCL [Diltiazem ER] 240 mg PO DAILY 05/01/19 06/17/19 Acetaminophen/Diphenhydramine 1 tab PO HS 05/07/19 06/17/19 [Tylenol PM 500-25mg] Furosemide [Lasix] 40 mg PO DAILY 05/07/19 06/17/19 Previous Rx's Medication Instructions Recorded Nirmatrelvir/Ritonavir [Paxlovid 3 each PO BID 5 Days #30 tab 06/15/22 2X150 mg-100 mg (Eua)] Allergies Allergy/AdvReac Type Severity Reaction Status Date / Time No Known Allergies Allergy Verified 09/19/22 16:22 Review of Systems ROS Statement: Those systems with pertinent positive or pertinent negative responses have been documented in the HPI. ROS Other: All systems not noted in ROS Statement are negative. Constitutional: Denies: fever Eyes: Denies: eye pain ENT: Denies: ear pain Respiratory: Reports: dyspnea Cardiovascular: Reports: as per HPI Endocrine: Denies: fatigue Gastrointestinal: Denies: abdominal pain Genitourinary: Denies: urgency Musculoskeletal: Denies: back pain Skin: Denies: rash Neurological: Denies: weakness Past Medical History Past Medical History: Atrial Fibrillation, Asthma, Blood Disorder, Diabetes Mellitus, Eye Disorder, Hyperlipidemia, Hypertension, Thyroid Disorder Additional Past Medical History / Comment(s): OVERACTIVE HYPERTHROID/TX WITH IODINE RADIATION -Graves disease. ANEMIA WITH BLOOD TRANSFUSIONS. History of Any Multi-Drug Resistant Organisms: None Reported Past Surgical History: Adenoidectomy, Bladder Surgery, Heart Catheterization, Tonsillectomy Additional Past Surgical History / Comment(s): BLADDER SUSPENSION, cardiac cath 08/2017, orbital surgery right side Past Anesthesia/Blood Transfusion Reactions: Postoperative Nausea & Vomiting (PONV) Past Psychological History: No Psychological Hx Reported Smoking Status: Former smoker Past Alcohol Use History: Occasional Past Drug Use History: None Reported - Past Family History Father Family Medical History: Dementia Mother Family Medical History: Cancer Additional Family Medical History / Comment(s): BRAIN TUMOR General Exam Limitations: no limitations General appearance: alert, in no apparent distress Head exam: Present: normocephalic Eye exam: Present: normal appearance Neck exam: Present: normal inspection Respiratory exam: Present: normal lung sounds bilaterally. Absent: chest wall tenderness Cardiovascular Exam: Present: regular rate (Rate consistent with monitor of mid 70s.), irregular rhythm Expanded Peripheral pulses: 2+: Radial (R), Radial (L), Dorsalis Pedis (R), Dorsalis Pedis (L) GI/Abdominal exam: Present: soft. Absent: tenderness Extremities exam: Present: normal inspection. Absent: pedal edema, calf tenderness Neurological exam: Present: alert Psychiatric exam: Present: normal affect, normal mood Skin exam: Present: normal color Course Vital Signs 09/19/22 09/19/22 09/19/22 16:20 16:32 17:00 Temperature 97.9 F Pulse Rate 37 L 81 67 Respiratory 20 18 Rate Blood Pressure 185/112 132/88 O2 Sat by Pulse 97 95 Oximetry 09/19/22 18:00 Temperature Pulse Rate Respiratory 18 Rate Blood Pressure 192/99 O2 Sat by Pulse 96 Oximetry - Reevaluation(s) Reevaluation #1: 09/19/22 16:38 Patient placed on production machine tender to monitor for bradycardia and arrhythmias. Patient has sinus rhythm with frequent PVCs. Patient on the production machine tender his heart rate of the mid 70s consistent with auscultation. Pulse oximetry is reading lower that is inconsistent with auscultation. EKG Findings - EKG Comments: EKG Findings:: Sinus rhythm with rate of 74. For computed sees. SC 183. QRS 73. QT 392. QTC 419. Normal axis. Normal QRS. No acute ST change Medical Decision Making - Medical Decision Making Patient reevaluated. Patient resting comfortably in bed. Heart rate remains stable. Patient and family updated. Patient reportedly did have a bad cold with infection within the past month or 2 that would likely explain interstitial changes on computed tomography scan. Case was discussed with Dr. Victoria, who will admit covering for Dr. Apodaca. Cardiology will be placed on consult. - Lab Data Result diagrams: 09/19/22 16:39 09/19/22 16:39 Lab Results 09/19/22 09/19/2222 Range/Units 16:39 16:39 16:39 WBC 11.1 H (3.8-10.6) k/uL RBC 4.86 (3.80-5.40) m/uL Hgb 14.2 (11.4-16.0) gm/dL Hct 43.9 (34.0-46.0) % MCV 90.3 (80.0-100.0) fL MCH 29.3 (25.0-35.0) pg MCHC 32.4 (31.0-37.0) g/dL RDW 15.4 (11.5-15.5) % Plt Count 202 (150-450) k/uL MPV 8.6 Neutrophils % 74 % Lymphocytes % 15 % Monocytes % 6 % Eosinophils % 3 % Basophils % 1 % Neutrophils # 8.2 H (1.3-7.7) k/uL Lymphocytes # 1.6 (1.0-4.8) k/uL Monocytes # 0.7 (0-1.0) k/uL Eosinophils # 0.3 (0-0.7) k/uL Basophils # 0.1 (0-0.2) k/uL Hypochromasia Slight PT 12.3 H (9.0-12.0) sec INR 1.2 H (<1.2) APTT 27.3 (22.0-30.0) sec D-Dimer 0.96 H (<0.60) mg/L FEU Sodium 140 (137-145) mmol/L Potassium 3.9 (3.5-5.1) mmol/L Chloride 99 (98-107) mmol/L Carbon Dioxide 29 (22-30) mmol/L Anion Gap 12 mmol/L BUN 13 (7-17) mg/dL Creatinine 0.86 (0.52-1.04) mg/dL Est GFR (CKD-EPI)AfAm 81 (>60 ml/min/1.73 sqM) Est GFR (CKD-EPI)NonAf 70 (>60 ml/min/1.73 sqM) Glucose 125 H (74-99) mg/dL Calcium 9.3 (8.4-10.2) mg/dL Magnesium 1.7 (1.6-2.3) mg/dL Total Bilirubin 0.8 (0.2-1.3) mg/dL AST 21 (14-36) U/L ALT 23 (4-34) U/L Alkaline Phosphatase 74 (38-126) U/L Troponin I (0.000-0.034) ng/mL Total Protein 6.7 (6.3-8.2) g/dL Albumin 4.2 (3.5-5.0) g/dL Amylase 44 (30-110) U/L Lipase 60 (23-300) U/L 09/19/22 Range/Units 16:39 WBC (3.8-10.6) k/uL RBC (3.80-5.40) m/uL Hgb (11.4-16.0) gm/dL Hct (34.0-46.0) % MCV (80.0-100.0) fL MCH (25.0-35.0) pg MCHC (31.0-37.0) g/dL RDW (11.5-15.5) % Plt Count (150-450) k/uL MPV Neutrophils % % Lymphocytes % % Monocytes % % Eosinophils % % Basophils % % Neutrophils # (1.3-7.7) k/uL Lymphocytes # (1.0-4.8) k/uL Monocytes # (0-1.0) k/uL Eosinophils # (0-0.7) k/uL Basophils # (0-0.2) k/uL Hypochromasia PT (9.0-12.0) sec INR (<1.2) APTT (22.0-30.0) sec D-Dimer (<0.60) mg/L FEU Sodium (137-145) mmol/L Potassium (3.5-5.1) mmol/L Chloride (98-107) mmol/L Carbon Dioxide (22-30) mmol/L Anion Gap mmol/L BUN (7-17) mg/dL Creatinine (0.52-1.04) mg/dL Est GFR (CKD-EPI)AfAm (>60 ml/min/1.73 sqM) Est GFR (CKD-EPI)NonAf (>60 ml/min/1.73 sqM) Glucose (74-99) mg/dL Calcium (8.4-10.2) mg/dL Magnesium (1.6-2.3) mg/dL Total Bilirubin (0.2-1.3) mg/dL AST (14-36) U/L ALT (4-34) U/L Alkaline Phosphatase (38-126) U/L Troponin I 0.080 H* (0.000-0.034) ng/mL Total Protein (6.3-8.2) g/dL Albumin (3.5-5.0) g/dL Amylase (30-110) U/L Lipase (23-300) U/L - Radiology Data Radiology results: report reviewed (CT chest shows no pulmonary embolism. Some increased interstitial markings), image reviewed (Chest x-ray reveals no acute process) Disposition Clinical Impression: Chest pain Disposition: ADMITTED IP TO THIS HOSP Is patient prescribed a controlled substance at d/c from ED?: No Referrals: Chet Apodaca MD [Primary Care Provider] - 1-2 days Time of Disposition: 18:40
--- NOTE | 2022-09-19 17:09 | XR ---
EXAMINATION TYPE: XR chest 2V DATE OF EXAM: 09/19/2022 COMPARISON: NONE HISTORY: Heartburn TECHNIQUE: 2 views FINDINGS: Heart size is normal. Lungs are clear of infiltrate. No heart failure. There is bilateral b reast implants with calcification. Bony thorax is intact. Thoracic spine is intact. Thoracic aorta is atheromatous. IMPRESSION: No active cardiopulmonary disease. No change.
[2022-09-19 17:13] LABS: Basophils # (A) 0.1 k/uL (0-0.2); Basophils % (A) 1 %; Eosinophils # (A) 0.3 k/uL (0-0.7); Eosinophils % (A) 3 %; HCT 43.9 % (34.0-46.0); HGB 14.2 gm/dL (11.4-16.0); Hypochromasia Slight; Lymphocytes # (A) 1.6 k/uL (1.0-4.8); Lymphocytes % (A) 15 %; MCH 29.3 pg (25.0-35.0); MCHC 32.4 g/dL (31.0-37.0); MCV 90.3 fL (80.0-100.0); Mean Platelet Volume 8.6; Monocytes # (A) 0.7 k/uL (0-1.0); Monocytes % (A) 6 %; Neutrophils # (A) 8.2 k/uL (1.3-7.7); Neutrophils % (A) 74 %; Platelet Count 202 k/uL (150-450); RBC 4.86 m/uL (3.80-5.40); RDW 15.4 % (11.5-15.5); WBC 11.1 k/uL (3.8-10.6)
[2022-09-19 17:22] LABS: Albumin 4.2 g/dL (3.5-5.0); Calcium 9.3 mg/dL (8.4-10.2); Magnesium 1.7 mg/dL (1.6-2.3); Potassium 3.9 mmol/L (3.5-5.1); Total Bilirubin 0.8 mg/dL (0.2-1.3); Total Protein 6.7 g/dL (6.3-8.2)
[2022-09-19 17:27] LABS: INR 1.2 (<1.2); Partial Thromboplastin Time 27.3 sec (22.0-30.0); Prothrombin Time 12.3 sec (9.0-12.0)
--- NOTE | 2022-09-19 18:08 | CT ---
EXAMINATION TYPE: CT angio chest DATE OF EXAM: 09/19/2022 COMPARISON: None HISTORY: Heart burn X3 days, elevated d-dimer CT DLP: 523.8 mGycm Automated exposure control for dose reduction was used. CONTRAST: Performed with IV Contrast, patient injected with 100 mL of Isovue 370. Images obtained from the thoracic inlet to the diaphragm with the IV contrast. There are 3-D post pro cessed images. There is some mild patchy groundglass interstitial density in the lung guallpa. No pulmonary mass. No mediastinal adenopathy. There are no hilar masses. No evidence of filling defect in the pulmonary art eries. Thoracic aorta is atheromatous. No aneurysm or dissection. The ascending aorta measures 3.3 cm. Heart size is fairly normal. No pericardial effusion. The thoracic spine is intact. No compression fracture sternum is intact. There is bilateral breast im plants with calcification IMPRESSION: No evidence of pulmonary embolism. No suspicious pulmonary mass. Mild patchy interstitial pulmonary i nfiltrates.
[2022-09-19] MEDS ORDERED: NITROGLYCERIN SL TABS 0.4 MG TAB SUBLINGUAL PRN (18:41)
[2022-09-20] MEDS: NITROGLYCERIN OINT 1 INCH/GM PACKET TOPICAL SCH ×3 (01:08→06:05)
[2022-09-20] MEDS: APIXABAN 5 MG TAB PO SCH ×3 (01:11→08:06)
[2022-09-20] MEDS: PANTOPRAZOLE 40 MG TABLET PO SCH ×3 (01:11→16:53)
--- NOTE | 2022-09-20 01:37 | P.HPIM ---
History of Present Illness H&P Date: 09/19/22 Chief Complaint: heart burn 67 year old female with afib on eliquis patient comes in for evaluation due to persistent heart burn for the past 3 days. it has been going on and off, however, today was getting worse ,with nothing helping with her symptoms and associated with vomiting, no bleeding she denies any chest pain or shortness of breath, denies any diarrhea , abd pain , or GI bleeding she went to her doctor for evaluation and was found to be bradycardiac. for magdalena chandra her PCP recommended to go to the ED. 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 she reports some recent viral illness about 2 months ago. she denies any cardiac history otherwise, except for afib that is controlled and is currently on blood thinners. 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 All other systems were reviewed and are negative Past Medical History Past Medical History: Atrial Fibrillation, Asthma, Blood Disorder, Diabetes Mellitus, Eye Disorder, Hyperlipidemia, Hypertension, Thyroid Disorder Additional Past Medical History / Comment(s): OVERACTIVE HYPERTHROID/TX WITH IODINE RADIATION -Graves disease. ANEMIA WITH BLOOD TRANSFUSIONS. History of Any Multi-Drug Resistant Organisms: None Reported Past Surgical History: Adenoidectomy, Bladder Surgery, Heart Catheterization, Tonsillectomy Additional Past Surgical History / Comment(s): BLADDER SUSPENSION, cardiac cath 08/2017, orbital surgery right side Past Anesthesia/Blood Transfusion Reactions: Postoperative Nausea & Vomiting (PONV) Past Psychological History: No Psychological Hx Reported Smoking Status: Former smoker Past Alcohol Use History: Occasional Past Drug Use History: None Reported - Past Family History Father Family Medical History: Dementia Mother Family Medical History: Cancer Additional Family Medical History / Comment(s): BRAIN TUMOR Medications and Allergies Home Medications Medication Instructions Recorded Confirmed Type Atorvastatin [Lipitor] 20 mg PO HS 07/13/17 06/17/19 History Ranitidine HCl [Zantac] 150 mg PO BID 07/13/17 06/17/19 History lisinopriL [Zestril] 5 mg PO DAILY 07/13/17 06/17/19 History Metoprolol Tartrate [Lopressor] 100 mg PO BID 08/14/17 06/17/19 History sitaGLIPtin [Januvia] 100 mg PO AC-LUNCH 11/16/17 06/17/19 History Aspirin 81 mg PO DAILY 04/28/18 06/17/19 History Budesonide/Formoterol Fumarate 2 puff INHALATION RT-BID 04/28/18 06/17/19 History [Symbicort 160-4.5 Mcg Inhaler] Cholecalciferol (Vitamin D3) 5,000 unit PO DAILY 04/28/18 06/17/19 History [Vitamin D3] Levalbuterol Tartrate [Xopenex Hfa 1 - 2 puff INHALATION RT-Q8H PRN 04/28/18 06/17/19 History Inhaler] Multivitamins, Thera [Multivitamin 0.5 tab PO BID 04/28/18 06/17/19 History (formulary)] metFORMIN HCL [Glucophage] 1,000 mg PO AC-BID 04/28/18 06/17/19 History Calcium Carbonate [Calcium] 1,200 mg PO DAILY 10/15/18 06/17/19 History Apixaban [Eliquis] 5 mg PO BID 05/01/19 06/17/19 History Ferrous Sulfate [Feosol] 65 mg PO DAILY 05/01/19 06/17/19 History Krill/[place]-3/Dha/Epa/Lipids 1 each PO DAILY 05/01/19 06/17/19 History [Krill Oil 350 mg Softgel] Levothyroxine Sodium 125 mcg PO DAILY 05/01/19 06/17/19 History dilTIAZem HCL [Diltiazem ER] 240 mg PO DAILY 05/01/19 06/17/19 History Acetaminophen/Diphenhydramine 1 tab PO HS 05/07/19 06/17/19 History [Tylenol PM 500-25mg] Furosemide [Lasix] 40 mg PO DAILY 05/07/19 06/17/19 History Nirmatrelvir/Ritonavir [Paxlovid 3 each PO BID 5 Days #30 tab 06/15/22 Rx 2X150 mg-100 mg (Eua)] Allergies Allergy/AdvReac Type Severity Reaction Status Date / Time No Known Allergies Allergy Verified 09/19/22 16:22 Physical Exam Vitals: Vital Signs Temp Pulse Resp BP Pulse Ox 09/19/22 18:00 18 192/99 96 09/19/22 17:00 67 18 132/88 95 09/19/22 16:32 81 09/19/22 16:20 97.9 F 37 L 20 185/112 97 Intake and Output 09/19/22 09/19/22 09/19/22 06:59 14:59 22:59 Other: Weight 81.647 kg Constitutional: No acute distress, conversant, pleasant Eyes: Anicteric sclerae, moist conjunctiva, Pupils equal round reactive to light ENMT: NC/AT Oropharynx clear, no erythema, or exudates Neck: Supple, no masses, or JVD No carotid bruits No thyromegaly Lungs: Clear to auscultation Clear to percussion Normal respiratory effort, no accessory muscle use Cardiovascular: Heart regular in rate and rhythm, No murmurs, gallops, or rubs No peripheral edema Abdominal: Soft Nontender, no guarding, rebound or rigidity Abdomen moving with respiration Normoactive bowel sounds No hepatomegaly, No splenomegaly No palpable mass No abdominal wall hernia noted Skin: Normal temperature, tone, texture, turgor No induration No subcutaneous nodules No rash, lesions No ulcers Extremities: No digital cyanosis No clubbing Pedal pulses intact and symmetrical Radial pulses intact and symmetrical No calf tenderness Psychiatric: Alert and oriented to person, place and time Appropriate affect fair judgement Neuro Muscles Strength 5/5 in all 4 extremities Sensation to light touch grossly present throughout Cranial nerves II-XII grossly intact No focal sensory deficits Lymphatics: no palpable cervical or supraclavicular lymph nodes Results CBC & Chem 7: 09/19/22 16:39 09/19/22 16:39 Labs: Abnormal Lab Results - Last 24 Hours (Table) 09/19/22 09/19/22 09/19/22 Range/Units 16:39 16:39 16:39 WBC 11.1 H (3.8-10.6) k/uL Neutrophils # 8.2 H (1.3-7.7) k/uL PT 12.3 H (9.0-12.0) sec INR 1.2 H (<1.2) D-Dimer 0.96 H (<0.60) mg/L FEU Glucose 125 H (74-99) mg/dL Troponin I (0.000-0.034) ng/mL 09/19/22 09/19/22 Range/Units 16:39 18:52 WBC (3.8-10.6) k/uL Neutrophils # (1.3-7.7) k/uL PT (9.0-12.0) sec INR (<1.2) D-Dimer (<0.60) mg/L FEU Glucose (74-99) mg/dL Troponin I 0.080 H* 0.089 H* (0.000-0.034) ng/mL Assessment and Plan Assessment: NSTEMI afib , with episodes of bradycardia , frequent PVCs ASA, statin continue eliquis 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
[2022-09-20 05:58] LABS: Glucose,Whole Blood 104 mg/dL (70-110)
[2022-09-20] MEDS: LEVOTHYROXINE 125 MCG TAB PO SCH (06:05)
[2022-09-20] MEDS: INSULIN ASPART (NovoLOG) 100 UNIT/ML VIAL SQ SCH ×4 (06:31→20:41)
[2022-09-20] MEDS ORDERED: MAG HYDROX/AL HYDROX/SIMETH 30 ML, HYOSCYAMINE ELIXIR 10 ML, LIDOCAINE VISCOUS 2% 10 ML PO ONE ×3 (08:26)
[2022-09-20] MEDS ORDERED: lisinopriL 5 MG TAB PO SCH (09:00)
[2022-09-20] MEDS ORDERED: ASPIRIN 325 MG TAB PO SCH (09:00)
[2022-09-20 09:10] LABS: Chol/HDL Ratio 2.57 Ratio; LDL Cholesterol,Calculated 60.9 mg/dL (0.0-131.0); VLDL Calculation 14.26 mg/dL (5.00-40.00)
[2022-09-20] MEDS: RIVAROXABAN 20 MG TAB PO SCH (09:35)
[2022-09-20 10:50] LABS: HCT 40.9 % (34.0-46.0); HGB 12.9 gm/dL (11.4-16.0); Hypochromasia Moderate; MCH 29.3 pg (25.0-35.0); MCHC 31.6 g/dL (31.0-37.0); MCV 92.8 fL (80.0-100.0); Mean Platelet Volume 10.3; Platelet Count 188 k/uL (150-450); RBC 4.41 m/uL (3.80-5.40); RDW 15.3 % (11.5-15.5); WBC 8.3 k/uL (3.8-10.6)
[2022-09-20 10:52] LABS: African American GFR (CKD) >90 (>60 ml/min/1.73 sqM); Anion Gap 7 mmol/L; Blood Urea Nitrogen 16 mg/dL (7-17); Calcium 8.6 mg/dL (8.4-10.2); Carbon Dioxide 29 mmol/L (22-30); Chloride 103 mmol/L (98-107); Glucose 108 mg/dL (74-99); Non-African American GFR(CKD) 79 (>60 ml/min/1.73 sqM); Sodium 139 mmol/L (137-145)
[2022-09-20 10:53] LABS: Potassium 3.8 mmol/L (3.5-5.1)
[2022-09-20] MEDS: DILTIAZEM ORAL 30 MG TAB PO SCH ×2 (10:59→20:49)
[2022-09-20] MEDS: METOPROLOL TARTRATE 50 MG TAB PO SCH ×2 (11:01→20:49)
[2022-09-20 11:16] LABS: Glucose,Whole Blood 133 mg/dL (70-110)
[2022-09-20] MEDS ORDERED: ALPRAZolam 0.25 MG TAB PO PRN (11:47)
[2022-09-20] MEDS ORDERED: NITROGLYCERIN SL TABS 0.4 MG TAB SUBLINGUAL PRN (11:47)
[2022-09-20] MEDS ORDERED: ALPRAZolam 0.5 MG TAB PO PRN (11:47)
--- NOTE | 2022-09-20 12:06 | CA ---
Transthoracic Echo Report Name: Margaret Jeffries Age: 67 Gender: F : 1955 Exam Date: 09/20/2022 08:45 Exam Location: [facility] Ht (in): 64 Wt (lb): 180 Ordering Physician: Iam Buckner DO Attending/Referring Phys: Ticket Dispatcher Demetra Ma, STEPHEN Procedure CPT: Indications: CP Cardiac Hx: Technical Quality: Technically difficult study Contrast 1: Lumason Total Dose (mL): 4 Contrast 2: Total Dose (mL): MEASUREMENTS (Male / Female) Normal Values 2D ECHO LA Volume 50.2 cm??? 18 - 58 / 22 - 52 cm??? DOPPLER MV Area PHT 2.6 cm??? Mitral E Point Velocity 57.7 cm/s Mitral A Point Velocity 72.4 cm/s Mitral E to A Ratio 0.8 MV Deceleration Time 288.6 ms MV E' Velocity 4.4 cm/s Mitral E to MV E' Ratio 13.1 FINDINGS Left Ventricle Left ventricular ejection fraction is estimated at 45-50%. Mildly increased left ventricular wall thickness. Septel Hypokinesis. Right Ventricle Normal right ventricular size and function. Right Atrium Normal right atrial size. Left Atrium Left atrial size at the upper limits of normal. Mitral Valve Structurally normal mitral valve. Mild mitral regurgitation. Aortic Valve Trileaflet aortic valve. Aortic valve sclerosis. Tricuspid Valve Structurally normal tricuspid valve. Mild tricuspid regurgitation. Pulmonic Valve Pulmonic valve not well visualized. Pericardium Normal pericardium. Aorta Aortic root and proximal ascending aorta not well visualized. CONCLUSIONS Mild LV systolic dysfunction with hypokinesis involving antral septum Mild mitral regurgitation Mild tricuspid regurgitation Technically suboptimal study Contrast agent was used enhance endocardial visualization Previewed by: Dr. Yo Peters MD (Electronically Signed) Final Date: 20 September 2022 12:04
--- NOTE | 2022-09-20 12:37 | P.CRDCN ---
History of Present Illness History of present illness: HISTORY OF PRESENT ILLNESS: This is a 67 year old female with a past medical history significant for paroxysmal atrial fibrillation with previous ablation (about 5 years ago), hypertension, and hyperlipidemia. Patient follows with Dr. Dawson. We have been asked to see the patient in consultation for abnormal troponins. Patient examined at the bedside. Patient reports for the past 3 days she has been having heartburn symptoms. She denies a history of GERD. She states she was taking pepto with little relief. She states that this morning she had another episode o f heart burn and received a GI cocktail. She states the pain is not exertional. She denies any radiation of the pain. Denies any SOB. She states she had a cardiac cath about 10 years ago that was normal to her knowledge. She denies having any previous stenting. Patient went to her PCP yesterday and was instructed to come to the ER for further evaluation. Her blood pressure is elevated at the time of examination, however she has not received all of her medications at the time of my examination. * EKG reveals sinus mechanism with PVCs. No signs of acute ischemia * Chest xray negative for acute process * Laboratory data: WBC 8.3. Hemoglobin 12.9. Platelet count 188. Sodium 139. Potassium 3.8. BUN 16. Creatinine 0.78. Troponin 0.080. 0.089. 0.084. * Current home cardiac medications include aspirin 81 mg daily, Lipitor 20 mg at night, Cardizem 30 mg twice a day, Lasix 20 mg daily as needed, metoprolol tartrate 100 mg twice a day, lisinopril 5 mg daily, and Xarelto 20 mg daily REVIEW OF SYSTEMS: At the time of my exam: CONSTITUTIONAL: Denies fever or chills. HEENT: Denies blurred vision, vision changes, or eye pain. Denies hemoptysis CARDIOVASCULAR: Denies chest pain. Denies orthopnea. Denies PND. Denies palpitations RESPIRATORY: Denies shortness of breath. GASTROINTESTINAL: Denies abdominal pain. Denies nausea or vomiting. HEMATOLOGIC: Denies bleeding disorders. GENITOURINARY: Denies any blood in urine. SKIN: Denies pruitis. Denies rash. PHYSICAL EXAM: VITAL SIGNS: Reviewed. GENERAL: Well-developed in no acute distress. HEENT: Head is normocephalic. Pupils are equal, round. Sclerae anicteric. Mucous membranes of the mouth are moist. Neck supple. No JVD or thyromegaly LUNGS: Respirations even and unlabored. Lungs essentially clear to auscultation bilaterally. HEART: Regular rate and rhythm. S1 and S2 heard. ABDOMEN: Soft. Nondistended. Nontender. EXTREMITIES: Normal range of motion. No clubbing or cyanosis. Peripheral pulses intact. No lower extremity edema NEUROLOGIC: Awake and alert. Oriented x 3. ASSESSMENT: Non-STEMI Hypertension, uncontrolled Paroxysmal atrial fibrillation with previous ablation Hyperlipidemia Diabetes PLAN: Obtain 2D echo to assess cardiac structure and function Resume home cardiac medications If BP remains elevated after medication administration, will adjust regimen Hold Xarelto NPO at midnight Patient to undergo cardiac cath tomorrow with Dr. Be Further recommendations pending patient course Nurse practitioner note has been reviewed by physician. Signing provider agrees with the documented findings, assessment, and plan of care. Past Medical History Past Medical History: Atrial Fibrillation, Asthma, Blood Disorder, Diabetes Mellitus, Eye Disorder, Hyperlipidemia, Hypertension, Thyroid Disorder Additional Past Medical History / Comment(s): OVERACTIVE HYPERTHROID/TX WITH IODINE RADIATION -Graves disease. ANEMIA WITH BLOOD TRANSFUSIONS. History of Any Multi-Drug Resistant Organisms: None Reported Past Surgical History: Adenoidectomy, Bladder Surgery, Heart Catheterization, Tonsillectomy Additional Past Surgical History / Comment(s): BLADDER SUSPENSION, cardiac cath 08/2017, orbital surgery right side Past Anesthesia/Blood Transfusion Reactions: Postoperative Nausea & Vomiting (PONV) Past Psychological History: No Psychological Hx Reported Smoking Status: Former smoker Past Alcohol Use History: Occasional Past Drug Use History: None Reported - Past Family History Father Family Medical History: Dementia Mother Family Medical History: Cancer Additional Family Medical History / Comment(s): BRAIN TUMOR Medications and Allergies Home Medications Medication Instructions Recorded Confirmed Type Atorvastatin [Lipitor] 20 mg PO HS 07/13/17 09/20/22 History Metoprolol Tartrate [Lopressor] 100 mg PO BID 08/14/17 09/20/22 History sitaGLIPtin [Januvia] 100 mg PO DAILY 11/16/17 09/20/22 History Aspirin 81 mg PO DAILY 04/28/18 09/20/22 History Budesonide/Formoterol Fumarate 2 puff INHALATION RT-BID 04/28/18 09/20/22 History [Symbicort 160-4.5 Mcg Inhaler] Levalbuterol Tartrate [Xopenex Hfa 1 - 2 puff INHALATION RT-Q8H PRN 04/28/18 09/20/22 History Inhaler] Calcium Carbonate [Calcium] 600 mg PO DAILY 10/15/18 09/20/22 History Alendronate Sodium [Fosamax] 70 mg PO Q7D 09/20/22 09/20/22 History Ergocalciferol (Vitamin D2) 1,250 mcg PO Q7D 09/20/22 09/20/22 History [Drisdol (50,000 Iu)] Famotidine [Pepcid] 20 mg PO BID 09/20/22 09/20/22 History Ferrous Sulfate [Feosol] 325 mg PO DAILY 09/20/22 09/20/22 History Furosemide [Lasix] 20 mg PO DAILY PRN 09/20/22 09/20/22 History Krill Oil 500 mg PO DAILY 09/20/22 09/20/22 History L.acidoph,Paracasei, B.lactis 1 cap PO DAILY 09/20/22 09/20/22 History [Probiotic] Levothyroxine Sodium [Synthroid] 112 mcg PO DAILY 09/20/22 09/20/22 History Montelukast Sodium [Singulair] 10 mg PO DAILY 09/20/22 09/20/22 History Multivit-Min/FA/Lycopen/Lutein 1 tab PO DAILY 09/20/22 09/20/22 History [Centrum Silver Tablet] Rivaroxaban [Xarelto] 20 mg PO DAILY 09/20/22 09/20/22 History Semaglutide [Ozempic] See Taper SQ Q7D 09/20/22 09/20/22 History Tiotropium 2.5 Mcg/Puff [Spiriva 2 puff INHALATION RT-DAILY 09/20/22 09/20/22 History Respimat 2.5 Mcg] dilTIAZem HCL 30 mg PO BID 09/20/22 09/20/22 History lisinopriL [Zestril] 5 mg PO DAILY 09/20/22 09/20/22 History metFORMIN HCL [Glucophage] 500 mg PO BID-W/MEALS 09/20/22 09/20/22 History Allergies Allergy/AdvReac Type Severity Reaction Status Date / Time No Known Allergies Allergy Verified 09/19/22 16:22 Physical Exam Vitals: Vital Signs Temp Pulse Pulse Resp BP BP Pulse Ox 09/20/22 07:49 97.4 F L 75 16 180/99 97 09/20/22 04:00 77 16 156/87 93 L 09/20/22 02:00 76 18 09/20/22 00:00 96.9 F L 76 18 160/77 94 L 09/19/22 23:29 96.4 F L 84 18 160/77 95 09/19/22 20:00 84 18 159/112 95 09/19/22 18:00 18 192/99 96 09/19/22 17:00 67 18 132/88 95 09/19/22 16:32 81 09/19/22 16:20 97.9 F 37 L 20 185/112 97 Intake and Output 09/19/22 09/20/22 09/20/22 22:59 06:59 14:59 Other: Voiding Method Toilet Toilet Toilet # Voids 2 Weight 81.647 kg 82 kg Results 09/20/22 05:35 09/20/22 05:35 Cardiac Enzymes 09/19/22 09/19/22 09/19/22 Range/Units 16:39 16:39 18:52 AST 21 (14-36) U/L Troponin I 0.080 H* 0.089 H* (0.000-0.034) ng/mL 09/19/22 Range/Units 21:33 AST (14-36) U/L Troponin I 0.084 H* (0.000-0.034) ng/mL Coagulation 09/19/22 Range/Units 16:39 PT 12.3 H (9.0-12.0) sec APTT 27.3 (22.0-30.0) sec Lipids 09/20/22 Range/Units 05:35 Triglycerides 71.30 (0.00-149.00) mg/dL Cholesterol 123.00 (0.00-200.00) mg/dL HDL Cholesterol 47.80 (40.00-60.00) mg/dL Cholesterol/HDL Ratio 2.57 Ratio CBC 09/19/22 Range/Units 16:39 WBC 11.1 H (3.8-10.6) k/uL RBC 4.86 (3.80-5.40) m/uL Hgb 14.2 (11.4-16.0) gm/dL Hct 43.9 (34.0-46.0) % Plt Count 202 (150-450) k/uL Comprehensive Metabolic Panel 09/19/22 Range/Units 16:39 Sodium 140 (137-145) mmol/L Potassium 3.9 (3.5-5.1) mmol/L Chloride 99 (98-107) mmol/L Carbon Dioxide 29 (22-30) mmol/L BUN 13 (7-17) mg/dL Creatinine 0.86 (0.52-1.04) mg/dL Glucose 125 H (74-99) mg/dL Calcium 9.3 (8.4-10.2) mg/dL AST 21 (14-36) U/L ALT 23 (4-34) U/L Alkaline Phosphatase 74 (38-126) U/L Total Protein 6.7 (6.3-8.2) g/dL Albumin 4.2 (3.5-5.0) g/dL Current Medications Generic Name Dose Route Start Last Admin Trade Name Freq PRN Reason Stop Dose Admin Aspirin 325 mg 09/20/22 09:00 09/20/22 07:49 Aspirin 325 Mg Tab PO 325 mg DAILY [facility] Administration Atorvastatin Calcium 20 mg 09/20/22 21:00 Atorvastatin 20 Mg Tab PO HS [facility] Budesonide/Formoterol Fumarate 2 puff 09/20/22 08:00 Symbicort 160-4.5 Mcg Inhaler INHALATION RT-BID [facility] Insulin Aspart 0 unit 09/20/22 07:30 09/20/22 06:31 Insulin Aspart (Novolog) 100 Unit/Ml Vial SQ Not Given ACHS [facility] Protocol Levothyroxine Sodium 125 mcg 09/20/22 06:30 09/20/22 06:05 Levothyroxine 125 Mcg Tab PO 125 mcg DAILY@0630 [facility] Administration Lisinopril 5 mg 09/20/22 09:00 09/20/22 07:49 Lisinopril 5 Mg Tab PO 5 mg DAILY [facility] Administration Nitroglycerin 0.4 mg 09/19/22 18:41 Nitroglycerin Sl Tabs 0.4 Mg Tab SUBLINGUAL Q5M PRN Chest Pain Nitroglycerin 1 inch 09/20/22 00:00 09/20/22 06:05 Nitroglycerin Oint 1 Inch/Gm Packet TOPICAL 1 inch Q6HR [facility] Administration Pantoprazole Sodium 40 mg 09/20/22 00:45 09/20/22 06:36 Pantoprazole 40 Mg Tablet PO 40 mg AC-BID [facility] Administration Rivaroxaban 20 mg 09/20/22 09:30 09/20/22 09:35 Rivaroxaban 20 Mg Tab PO 20 mg DAILY [facility] Administration Protocol Intake and Output 09/19/22 09/20/22 09/20/22 22:59 06:59 14:59 Other: Voiding Method Toilet Toilet Toilet # Voids 2 Weight 81.647 kg 82 kg 09/19/22 16:39 09/19/22 16:39
[2022-09-20] MEDS ORDERED: lisinopriL 5 MG TAB PO STA (12:42)
--- NOTE | 2022-09-20 13:57 | P.PN ---
Subjective Progress Note Date: 09/20/22 Hospital course: Patient is a very pleasant 67-year-old female with a past medical history of atrial fibrillation on anticoagulation with Xarelto, hypertension, hy perlipidemia, hypothyroidism, COPD, and [id number] diabetes mellitus. She presented to the emergency department with a chief complaint of chest pain and heartburn. Patient reports persistent heartburn 3 days. She underwent full evaluation in the emergency department. She was found to have an elevated troponin of 0.080 with EKG revealing sinus rhythm at 74 bpm with frequent PVCs. Chest x-ray negative for acute cardiopulmonary process. CBC revealed mild leukocytosis with WBC count of 11.1 and CMP was unremarkable. D-dimer was elevated at 0.96. CT of chest negative for pulmonary emboli. Patient was admitted under our services with consultation to cardiology. Troponins trended and remained elevated at 0.080, 0.089, and 0.084. Echocardiogram completeed revealing EF 45-50% with septal hypokinesis and mild mitral and tricuspid regurgitation. Patient was evaluated by cardiology and they're planning to take patient for cardiac cath tomorrow morning. Physical exam: Vital signs reviewed and stable. General: Nontoxic, no distress and appears stated age. Derm: Skin warm and dry, normal coloration for ethnicity. Head: Atraumatic, normocephalic and symmetric. Eyes: EOMs intact, no lid lag, and anicteric sclera Mouth: no lip lesions, mucus membranes moist Cardiovascular: regular rate and rhythm with normal S1S2, no murmur, positive posterior tibial pulses bilaterally, and cap refill < 2 seconds. Lungs: Respirations even, regular, and unlabored on room air. Lungs CTA bilaterally, no rhonchi, no rales, no wheezing, and no accessory muscle usage. Abdominal: soft, nontender to palpation, no guarding, no appreciable or ganomegaly Ext: ROM intact. No gross muscle atrophy, no edema, no contractures Neuro: Speech clear, face symmetrical and CN II-XII grossly intact with no noted focal neuro deficits Psych: Alert and oriented to person, place, time, and situation. Appropriate and pleasant affect. Assessment and Plan of Care: NSTEMI Hypertensive urgency Hyperlipidemia Paroxysmal atrial fibrillation -Cardiology following, planning to take patient for cardiac cath tomorrow morning. -Telemetry monitoring -Troponins elevated at 0.080, 0.089, and 0.084. -Cardiac diet, NPO at midnight -Continue cardiac medication regimen with aspirin, Xarelto, atorvastatin, Cardizem, lisinopril, and metoprolol -Lipid profile unremarkable. -Echocardiogram revealing EF 45-50% with septal hypokinesis and mild mitral and tricuspid regurgitation. GERD -GI cocktail 1 dose followed by Protonix 40 mg twice daily. Hypothyroidism -Continue daily medication regimen with levothyroxine CODE STATUS: Full code DVT prophylaxis: Xarelto Discussed with: pt. pt's and RN Anticipated discharge date: 1-[address]: Home A total of 34 minutes was spent on the care of this complex patient more than 50% of the time was spent in counseling and care coordination. Layton Jordan NP rendered care for this patient independently, reviewed the findings and plan as documented in the note above. I did not physically speak with or examine the patient on this date. Objective - Vital Signs Vital signs: Vital Signs Temp 97.4 F L 09/20/22 07:49 Pulse 82 09/20/22 11:11 Resp 17 09/20/22 11:11 BP 180/101 09/20/22 12:40 Pulse Ox 98 09/20/22 11:11 FiO2 Intake & Output 09/19/22 09/20/22 09/20/22 18:59 06:59 18:59 Weight 81.647 kg 82 kg Other: Voiding Method Toilet Toilet # Voids 2 0 - Labs CBC & Chem 7: 09/20/22 05:35 09/20/22 05:35 Labs: Abnormal Lab Results - Last 24 Hours (Table) 09/19/22 09/19/22 09/19/22 Range/Units 16:39 16:39 16:39 WBC 11.1 H (3.8-10.6) k/uL Neutrophils # 8.2 H (1.3-7.7) k/uL PT 12.3 H (9.0-12.0) sec INR 1.2 H (<1.2) D-Dimer 0.96 H (<0.60) mg/L FEU Glucose 125 H (74-99) mg/dL POC Glucose (mg/dL) (70-110) mg/dL Troponin I (0.000-0.034) ng/mL 09/19/22 09/19/22 09/19/22 Range/Units 16:39 18:52 21:33 WBC (3.8-10.6) k/uL Neutrophils # (1.3-7.7) k/uL PT (9.0-12.0) sec INR (<1.2) D-Dimer (<0.60) mg/L FEU Glucose (74-99) mg/dL POC Glucose (mg/dL) (70-110) mg/dL Troponin I 0.080 H* 0.089 H* 0.084 H* (0.000-0.034) ng/mL 09/20/22 09/20/22 Range/Units 05:35 11:15 WBC (3.8-10.6) k/uL Neutrophils # (1.3-7.7) k/uL PT (9.0-12.0) sec INR (<1.2) D-Dimer (<0.60) mg/L FEU Glucose 108 H (74-99) mg/dL POC Glucose (mg/dL) 133 H (70-110) mg/dL Troponin I (0.000-0.034) ng/mL
[2022-09-20] MEDS: SYMBICORT 160-4.5 MCG INHALER INHALATION SCH ×2 (15:37→20:27)
[2022-09-20 16:32] LABS: Glucose,Whole Blood 136 mg/dL (70-110)
[2022-09-20 20:07] LABS: Glucose,Whole Blood 147 mg/dL (70-110)
[2022-09-20] MEDS: lisinopriL 10 MG TAB PO SCH (20:49)
[2022-09-20] MEDS ORDERED: ATORVASTATIN 20 MG TAB PO SCH (21:00)
[2022-09-21] MEDS: SODIUM CHLORIDE 0.9% 1,000 ML in EMPTY BAG 1 BAG IV SCH ×2 (00:06→08:34)
[2022-09-21 04:30] VITALS: TEMP 97.8
[2022-09-21] MEDS ORDERED: ASPIRIN 325 MG TAB PO ONE (05:00)
[2022-09-21] MEDS ORDERED: ATORVASTATIN 80 MG TAB PO ONE (05:00)
[2022-09-21] MEDS: INSULIN ASPART (NovoLOG) 100 UNIT/ML VIAL SQ SCH ×2 (05:35→12:48)
[2022-09-21] MEDS: METOPROLOL TARTRATE 50 MG TAB PO SCH (06:03)
[2022-09-21] MEDS: lisinopriL 10 MG TAB PO SCH (06:03)
[2022-09-21] MEDS: LEVOTHYROXINE 125 MCG TAB PO SCH (06:03)
[2022-09-21] MEDS: DILTIAZEM ORAL 30 MG TAB PO SCH (06:04)
[2022-09-21] MEDS: PANTOPRAZOLE 40 MG TABLET PO SCH (06:04)
[2022-09-21 06:08] LABS: Glucose,Whole Blood 142 mg/dL (70-110)
[2022-09-21] MEDS ORDERED: IV FLUID CONTINUATION 1,000 ML IV ONE ×2 (06:55)
[2022-09-21] MEDS ORDERED: HEPARIN SODIUM,PORCINE 2,500 UNIT in SODIUM CHLORIDE 0.9% 250 ML IRRIGATION PRN (07:00)
[2022-09-21] MEDS ORDERED: HEPARIN SODIUM,PORCINE 10,000 UNIT in SODIUM CHLORIDE 0.9% 1,000 ML IRRIGATION PRN (07:00)
[2022-09-21] MEDS ORDERED: VERAPAMIL 2.5 MG/ML 2 ML AMP ONE (07:01)
[2022-09-21] MEDS ORDERED: HEPARIN SODIUM 1,000 UN/ML (10ML VL) ONE (07:05)
[2022-09-21] MEDS: MIDAZOLAM 2 MG/2 ML VIAL IV ONE ×2 (07:51→08:04)
[2022-09-21] MEDS ORDERED: fentaNYL (PF) 50 MCG/1 ML VIAL IV ONE (07:52)
[2022-09-21] MEDS ORDERED: LIDOCAINE 1% INJ 10MG/ML (30 ML VIAL-PF) SQ ONE (07:57)
[2022-09-21] MEDS: VERAPAMIL SYRINGE (5 MG/10 ML) INTRAARTER ONE ×3 (08:02→08:07)
[2022-09-21] MEDS ORDERED: NITROGLYCERIN SL TABS 0.4 MG TAB SUBLINGUAL ONE ×2 (08:07)
[2022-09-21] MEDS ORDERED: HEPARIN SODIUM 1,000 UN/ML (10ML VL) IVP ONE (08:10)
[2022-09-21] MEDS ORDERED: IOPAMIDOL-370 125ML BTL INJ ONE (08:12)
[2022-09-21] MEDS ORDERED: RX INFO: IV CONTRAST WAS GIVEN 1 EACH MISC MISCELLANE PRN (08:19)
--- NOTE | 2022-09-21 08:26 | P.CARDCATH ---
Date of Procedure: 09/21/22 Description of Procedure: Cardiac Catheterization: The patient is a 59 atrial female with known history of hypertension, hyperlipidemia, prior history of atrial fibrillation status post ablation who presented with epigastric discomfort and mild troponin elevation and elevated blood pressure. Her echocardiogram showed mild impairment in the left ventricular systolic function with questionable segmental wall motion abnormality. Recommendations were made regarding cardiac catheterization, the risks and the complications were discussed with the patient who is in full understanding and agreement. 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 Using Xylocaine Anesthesia and Seldinger technique, a 6-Tristanian sheath was introduced in the right radial artery . Subsequently, selective coronary angiography was performed using a 5-Tristanian 3.5 bend Roland catheter. Multiple views of the coronary artery including hemiaxial views were obtained. The left Roland catheter was used to cross the aortic valve and LVEDP was calculated. Following that, catheter and sheath were removed. Hemostasis was obtained with deployment of TR band . There was no immediate complication. Patient was returned to room in stable condition. Of note, the patient received a total of 4000 units of intravenous heparin as well as intra-arterial verapamil. Findings: Left main: This is a large size vessel, bifurcating into LAD and left circumflex, left main has no high-grade stenosis LAD: This is a large size vessel, reaching to the apex, giving rise to 3 small diagonal branch. The LAD in the proximal segment has mild intimal disease of 10%. Left circumflex: This is a large nondominant vessel giving rise to 3 obtuse marginal branch, the first one is the largest and caliber. The left circumflex has no evidence of high-grade stenosis RCA: This is a large dominant vessel, bifurcating into PDA and PLV, the RCA has no evidence of high-grade stenosis Left Ventriculogram: Not performed Hemodynamics: There was no gradient across the aortic valve, LVEDP was 16-20 mmHg Conclusion: 1. Mild intimal disease in the proximal LAD 2. Right dominance 3. Elevated LVEDP Recommendations: I would recommend to continue medical therapy, I would add hydrochlorothiazide to her regimen to optimize the blood pressure control. She should be able to be discharged home today and follow-up with her primary address change clerk and resume her anticoagulation as of tomorrow. The findings and the recommendations were discussed with the patient and the family and they were in full understanding and agreement. Duration of sedation is 18 minutes.
[2022-09-21] MEDS ORDERED: SODIUM CHLORIDE 0.9% 1,000 ML IV SCH (08:30)
[2022-09-21 08:32] VITALS: PULSE 63; RESP 18
[2022-09-21] MEDS: RIVAROXABAN 20 MG TAB PO SCH (08:32)
[2022-09-21] MEDS ORDERED: hydroCHLOROthiazide 25 MG TAB PO SCH (09:00)
[2022-09-21] MEDS: SYMBICORT 160-4.5 MCG INHALER INHALATION SCH (09:09)
[2022-09-21 11:24] VITALS: BP 154/70
[2022-09-21 11:48] LABS: Glucose,Whole Blood 314 mg/dL (70-110)
--- NOTE | 2022-09-21 11:48 | P.DS ---
Providers Date of admission: 09/20/22 09:34 Expected date of discharge: 09/21/22 Attending physician: Braulio Pro MD Consults: 09/19/22 18:41 Consult Physician Urgent Consulting Provider: Yo Peters Consult Reason/Comments: cp Do you want consulting provider notified?: Yes Primary care physician: [facility] Hospital Course: Discharge Diagnosis: Elevated troponins, secondary to hypertensive urgency. Acute coronary event was ruled out. Echocardiogram revealing EF 45-50% with septal hypokinesis and mild mitral and tricuspid regurgitation. Patient was evaluated by cardiology and taken for a cardiac cath. Cardiac cath revealing mild intimal disease in the proximal LAD, right dominance, and elevated LVEDP. Cardiology recommending continued medical therapy and optimizing control of blood pressure. Hypertensive urgency. Lisinopril was increased to 10 mg twice daily, Lasix was discontinued and patient was started on hydrochlorothiazide 25 mg daily in addition to metoprolol 100 mg twice daily. Patient was educated on the importance of optimizing control of blood pressure. Patient was instructed to monitor blood pressure twice daily and document these findings in a daily log/journal to bring to her next doctor's appointment as additional adjustments may be needed to the current blood pressure medication regimen to best optimize control. Hyperlipidemia, lipid profile unremarkable. Patient to continue with heart healthy diet and daily medication regimen with atorvastatin 20 mg nightly. Paroxysmal atrial fibrillation. Continue anticoagulation with Xarelto and rate control with metoprolol and diltiazem. GERD. Continue Pepcid 20 mg daily. Hypothyroidism. Continue daily medication regimen with levothyroxine Hospital Course: Patient is a very pleasant 67-year-old female with a past medical history of atrial fibrillation on anticoagulation with Xarelto, hypertension, hyperlipidemia, hypothyroidism, COPD, and [id number] diabetes mellitus. She presented to the emergency department with a chief complaint of chest pain and heartburn. Patient reports persistent heartburn 3 days. She underwent full evaluation in the emergency department. She was found to have a hypertensive urgency with blood pressure as high as 195/107 and have an elevated troponin of 0.080. EKG revealed sinus rhythm at 74 bpm with frequent PVCs. Chest x-ray negative for acute cardiopulmonary process. CBC revealed mild leukocytosis with WBC count of 11.1 and CMP was unremarkable. D-dimer was elevated at 0.96. CT of chest negative for pulmonary emboli. Patient was admitted under our services with consultation to cardiology. Lisinopril was increased to 10 mg twice daily, Lasix was discontinued and patient was started on hydrochlorothiazide 25 mg daily. Troponins were trended and remained elevated at 0.080, 0.089, and 0.084. Blood pressures were improving. Echocardiogram completeed revealing EF 45-50% with septal hypokinesis and mild mitral and tricuspid regurgitation. Patient was evaluated by cardiology and taken for a cardiac cath. Cardiac cath revealing mild intimal disease in the proximal LAD, right dominance, and elevated LVEDP. Cardiology recommending continued medical therapy and optimizing control of blood pressure. Lisinopril was increased to 10 mg twice daily, Lasix was discontinued and patient was started on hydrochlorothiazide 25 mg daily in addition to metoprolol 100 mg twice daily. Patient was educated on the importance of optimizing control of blood pressure. Patient was instructed to monitor blood pressure twice daily and document these findings in a daily log/journal to bring to her next doctor's appointment as additional adjustments may be needed to the current blood pressure medication regimen to best optimize control. Patient is free from any complaints or concerns at this time and is medically stable for discharge home. Physical exam: Cardiac cath access site right wrist showing no signs of bleeding, drainage, hematoma, erythema, or bruising at this time. Vital signs stable with blood pressure 154/70, heart rate 63, respiratory rate 18, and SpO2 of 95% on room air. Vital signs reviewed and stable. General: Nontoxic, no distress and appears stated age. Derm: Skin warm and dry, normal coloration for ethnicity. Head: Atraumatic, normocephalic and symmetric. Eyes: EOMs intact, no lid lag, and anicteric sclera Mouth: no lip lesions, mucus membranes moist Cardiovascular: regular rate and rhythm with normal S1S2, no murmur, positive posterior tibial pulses bilaterally, and cap refill < 2 seconds. Lungs: Respirations even, regular, and unlabored on room air. Lungs CTA bilaterally, no rhonchi, no rales, no wheezing, and no accessory muscle usage. Abdominal: soft, nontender to palpation, no guarding, no appreciable organomegaly Ext: ROM intact. No gross muscle atrophy, no edema, no contractures Neuro: Speech clear, face symmetrical and CN II-XII grossly intact with no noted focal neuro deficits Psych: Alert and oriented to person, place, time, and situation. Appropriate and pleasant affect. A total of 35 minutes of time were spent preparing this complex discharge summary. Pt was discharged on 09/21/22 11:35 AM. Patient Condition at Discharge: Stable Plan - Discharge Summary New Discharge Prescriptions: New hydroCHLOROthiazide [Hydrodiuril] 25 mg PO DAILY 30 Days #30 tab lisinopriL [Zestril] 10 mg PO BID 30 Days #60 tab Continue Atorvastatin [Lipitor] 20 mg PO HS Metoprolol Tartrate [Lopressor] 100 mg PO BID sitaGLIPtin [Januvia] 100 mg PO DAILY Aspirin 81 mg PO DAILY Budesonide/Formoterol Fumarate [Symbicort 160-4.5 Mcg Inhaler] 2 puff INHALATION RT-BID Levalbuterol Tartrate [Xopenex Hfa Inhaler] 1 - 2 puff INHALATION RT-Q8H PRN PRN Reason: Shortness Of Breath Calcium Carbonate [Calcium] 600 mg PO DAILY Rivaroxaban [Xarelto] 20 mg PO DAILY Montelukast Sodium [Singulair] 10 mg PO DAILY metFORMIN HCL [Glucophage] 500 mg PO BID-W/MEALS Krill Oil 500 mg PO DAILY L.acidoph,Paracasei, B.lactis [Probiotic] 1 cap PO DAILY Alendronate Sodium [Fosamax] 70 mg PO Q7D Tiotropium 2.5 Mcg/Puff [Spiriva Respimat 2.5 Mcg] 2 puff INHALATION RT-DAILY Levothyroxine Sodium [Synthroid] 112 mcg PO DAILY Semaglutide [Ozempic] See Taper SQ Q7D Ergocalciferol (Vitamin D2) [Drisdol (50,000 Iu)] 1,250 mcg PO Q7D Ferrous Sulfate [Iron (65 MG Elemental)] 325 mg PO DAILY Famotidine [Pepcid] 20 mg PO BID dilTIAZem HCL 30 mg PO BID Multivit-Min/FA/Lycopen/Lutein [Centrum Silver Tablet] 1 tab PO DAILY Discontinued lisinopriL [Zestril] 5 mg PO DAILY Furosemide [Lasix] 20 mg PO DAILY PRN PRN Reason: Edema Discharge Medication List Atorvastatin [Lipitor] 20 mg PO HS 07/13/17 [History] Metoprolol Tartrate [Lopressor] 100 mg PO BID 08/14/17 [History] sitaGLIPtin [Januvia] 100 mg PO DAILY 11/16/17 [History] Aspirin 81 mg PO DAILY 04/28/18 [History] Budesonide/Formoterol Fumarate [Symbicort 160-4.5 Mcg Inhaler] 2 puff INHALATION RT-BID 04/28/18 [History] Levalbuterol Tartrate [Xopenex Hfa Inhaler] 1 - 2 puff INHALATION RT-Q8H PRN 04/28/18 [History] Calcium Carbonate [Calcium] 600 mg PO DAILY 10/15/18 [History] Alendronate Sodium [Fosamax] 70 mg PO Q7D 09/20/22 [History] Ergocalciferol (Vitamin D2) [Drisdol (50,000 Iu)] 1,250 mcg PO Q7D 09/20/22 [History] Famotidine [Pepcid] 20 mg PO BID 09/20/22 [History] Ferrous Sulfate [Iron (65 MG Elemental)] 325 mg PO DAILY 09/20/22 [History] Krill Oil 500 mg PO DAILY 09/20/22 [History] L.acidoph,Paracasei, B.lactis [Probiotic] 1 cap PO DAILY 09/20/22 [History] Levothyroxine Sodium [Synthroid] 112 mcg PO DAILY 09/20/22 [History] Montelukast Sodium [Singulair] 10 mg PO DAILY 09/20/22 [History] Multivit-Min/FA/Lycopen/Lutein [Centrum Silver Tablet] 1 tab PO DAILY 09/20/22 [History] Rivaroxaban [Xarelto] 20 mg PO DAILY 09/20/22 [History] Semaglutide [Ozempic] See Taper SQ Q7D 09/20/22 [History] Tiotropium 2.5 Mcg/Puff [Spiriva Respimat 2.5 Mcg] 2 puff INHALATION RT-DAILY 09/20/22 [History] dilTIAZem HCL 30 mg PO BID 09/20/22 [History] metFORMIN HCL [Glucophage] 500 mg PO BID-W/MEALS 09/20/22 [History] hydroCHLOROthiazide [Hydrodiuril] 25 mg PO DAILY 30 Days #30 tab 09/21/22 [Rx] lisinopriL [Zestril] 10 mg PO BID 30 Days #60 tab 09/21/22 [Rx] Follow up Appointment(s)/Referral(s): Poornima Be MD [STAFF PHYSICIAN] - 1 Week Chet Apodaca MD [Primary Care Provider] - 1-2 days Activity/Diet/Wound Care/Special Instructions: Activity: As tolerated. Take breaks as needed. Diet: Heart healthy and carb consistent diet. Avoid salts, or foods with hidden salts such as canned or boxed foods and frozen dinners. Extra salt makes your heart work harder and traps the fluid in your body for longer. Special Instructions: Take all of your medications as directed and remember to keep all of your doctor's appointments and follow-up as needed. Highly recommend monitoring your blood pressure twice daily and documenting these findings in a daily log/journal to bring with you to your next doctor's appointment as additional adjustments may be needed to your current blood pressure medication regimen to best optimize control. Thank you for allowing us to participate in your care, it was truly a pleasure having you for our patient!!! Discharge Disposition: HOME SELF-CARE
== END 2022-09-21 15:00 | disposition home or self-care (01) | DRG 282 ==
LOC: EC 16:06 → 3SCARD 18:42 → OBSVTOIN 09-20 09:34 → 3SCARD 09-20 13:06
PROVIDERS: ADMIT Family Medicine; ATTEND Family Medicine
PROC: 4A023N7 Measurement of Cardiac Sampling and Pressure, Left Heart, Percutaneous Approach (ICD-10-PCS; 2022-09-21)
PROC: B2111ZZ Fluoroscopy of Multiple Coronary Arteries using Low Osmolar Contrast (ICD-10-PCS; principal; 2022-09-21 07:30)
DX: I16.0 Hypertensive urgency (principal); I21.4 Non-ST elevation (NSTEMI) myocardial infarction; I11.9 Hypertensive heart disease without heart failure; J44.9 Chronic obstructive pulmonary disease, unspecified; E11.9 Type 2 diabetes mellitus without complications; E03.9 Hypothyroidism, unspecified; E78.5 Hyperlipidemia, unspecified; I49.3 Ventricular premature depolarization; I48.0 Paroxysmal atrial fibrillation; R79.89 Other specified abnormal findings of blood chemistry; I08.3 Combined rheumatic disorders of mitral, aortic and tricuspid valves; K21.9 Gastro-esophageal reflux disease without esophagitis; Z28.310 Unvaccinated for COVID-19; Z79.84 Long term (current) use of oral hypoglycemic drugs; Z79.82 Long term (current) use of aspirin; Z79.51 Long term (current) use of inhaled steroids; Z79.01 Long term (current) use of anticoagulants; Z79.890 Hormone replacement therapy; Z87.891 Personal history of nicotine dependence; Z92.3 Personal history of irradiation; Z79.83 Long term (current) use of bisphosphonates; Z79.899 Other long term (current) drug therapy
CPT/HCPCS: 36415; 71046; 71275; 80048; 80053; 80061; 82150; 83690; 83735; 84484; 85025; 85027; 85379; 85610; 85730; 93005; 93306; 93458; 94640; 94760; 99285

== ENCOUNTER → 2022-12-08 | Outpatient (CLI) | payer MEDICARE, OTHER ==
--- NOTE | 2022-12-08 16:16 | US ---
EXAMINATION TYPE: US thyroid st tissue head/neck DATE OF EXAM: 12/08/2022 COMPARISON: NONE CLINICAL HISTORY: E04.1 thyroid nodule. GLAND SIZE: Right Lobe: 1.1 x 0.5 x 0.5 cm Overall Parenchyma: heterogenous Left Lobe: 1.5 x 0.7 x 1.2 cm Overall Parenchyma: heterogeneous Isthmus Thickness: 0.2 cm NODULES RIGHT: # of nodules measured on right: 0 LEFT: # of nodules measured on left: 1 1. 0.7 X 0.4 x 0.6 cm, mid, solid or almost completely solid, isoechoic nodule, which is wider than tall, with ill-defined margins, without echogenic foci. Prior size: 0.9 x 0.6 x 0.8 cm ISTHMUS: # of nodules measured in the isthmus: 0 Bilateral neck scanned, no evidence of lymphadenopathy. IMPRESSION: 1. Subcentimeter nodule left lobe thyroid.
== END | disposition home or self-care (01) ==
LOC: RADUSWWP 14:06
PROVIDERS: ATTEND Otolaryngology
DX: E04.1 Nontoxic single thyroid nodule (principal)
CPT/HCPCS: 76536